=== PATIENT | female | born 1930 | race African-American/Black ===

== ENCOUNTER 2016-12-21 13:11 | Inpatient (IN) | payer MEDICARE, OTHER ==
[~2016-12-21] VITALS: Ht 165.1 cm; Wt 68.3 kg
[~2016-12-21 13:11] MED LIST: ACET325T9 PO; ALLO300T PO; AMLO2.5T2 PO; ATEN25TA PO; BISA-42 PO; CARV3.122 PO; CEFU500T46 PO; CHOL500016 PO; CYAN10005 PO; DEME300T PO; DIPH25CA58 PO; FAMO20TA5 PO; FERR-26 PO; FOLI1TAB16 PO; FURO-68 PO; FURO-69 PO; GABA-586 PO; GUAI100L12 PO; GUAI100L3 PO; GUAI118L3 PO; GUAI600T38 PO; IPRA0.2S5 NEB; IPRA3AMP IH; MAG360OR24 PO; MAGN400T3 PO; METO5TAB PO; MINE120C TP; NITR0.4T6 SL; OMEP20CA9 PO; OMEP20TA PO; ONDA4TAB10 SL; OSEL75CA PO; PANT40TA3 PO; POLY17PO5 PO; POTA10CA PO; SENN1TAB5 PO; SODI30SP NS; SPIR50TA PO; TOLV15TA PO; TRAM50TA PO
[2016-12-21] MEDS ORDERED: IV NORMAL SALINE 1000ML BAG 1,000 ML IV SCH (14:09)
--- NOTE | 2016-12-21 14:47 | PHYS DOC ---
Past Medical History Past Medical History: Anemia, Arthritis, Arrhythmia, Asthma, CHF, GERD, Kidney Infection, Renal Disease, TB, Other Additional Past Medical Histor: Lymphedema, Malignant Lymphomas, Falls, Rhabdomyolsis, Gout, Dysrhythmias Past Surgical History: Hysterectomy Additional Past Surgical Histo: Unknown Alcohol Use: None Drug Use: None Adult General Chief Complaint Chief Complaint: MULTIPLE COMPLAINTS HPI HPI Patient is a 86 year old female who presents with possible bowel obstruction. The patient came to the emergency department from her alf after patient became diaphoretic while trying to have a bowel movement. Patient is accompanied by her who helps provide history. The patient has had difficulty with bowel movements throughout the week. The patient was given MiraLAX to try to help with bowel movements. Patient has only been able to move liquid stool. Patient had x-rays done through the alf which showed small bowel distention. The patient was sent to the emergency department for further evaluation. The patient has not been able to tolerate oral intake today. Patient denies any significant pain currently. Review of Systems Review of Systems Constitutional: Denies fever or chills [] Eyes: Denies change in visual acuity, redness, or eye pain [] HENT: Denies nasal congestion or sore throat [] Respiratory: Denies cough or shortness of breath [] Cardiovascular: Denies chest pain or edema [] GI: Abdominal distention, constipation [] : Denies dysuria or hematuria [] Musculoskeletal: Denies back pain or joint pain [] Integument: Denies rash or skin lesions [] Neurologic: Denies headache, focal weakness or sensory changes [] Endocrine: Denies polyuria or polydipsia [] Current Medications Current Medications Current Medications Medications (Trade) Dose Ordered Sig/Harmeet Start Time Stop Time Status Last Admin Dose Admin Sodium Chloride (Iv Sodium Chloride 0.9% 1000ml Bag) 1,000 ml @ 100 mls/hr Q10H 12/21/16 14:09 12/22/16 00:08 Allergies Allergies Allergies Coded Allergies Type Severity Reaction Last Updated Verified Iodinated Contrast Media - Oral and Allergy Severe Anaphylaxis 02/04/16 Yes Iodine and Iodide Containing Produc Allergy Severe Anaphylaxis 02/04/16 Yes iodine Allergy Severe ANAPHYLAXIS 02/04/16 Yes Penicillins Allergy Intermediate 02/04/16 Yes I S O L A T I O N *CONTACT* Allergy Unknown 02/04/16 Yes Physical Exam Physical Exam Constitutional: Alert, afebrile, appears in no acute distress. [] HENT: Normocephalic, atraumatic, bilateral external ears normal, oropharynx moist, no oral exudates, nose normal. [] Eyes: PERRLA, EOMI, conjunctiva normal, no discharge. [] Neck: Normal range of motion, no tenderness, supple, no stridor. [] Cardiovascular:Heart rate regular rhythm, no murmur [] Lungs & Thorax: Bilateral breath sounds clear to auscultation [] Abdomen: Abdomen distended, high-pitched bowel sounds, nontender to palpation, rectal exam reveals no fecal impaction. [] Skin: Warm, dry, no erythema, no rash. [] Back: No tenderness, no CVA tenderness. [] Extremities: No tenderness, no cyanosis, no clubbing, ROM intact, no edema. [] Neurologic: Alert and oriented X 3, normal motor function, normal sensory function, no focal deficits noted. [] Current Patient Data Vital Signs Vital Signs Date Time Temp Pulse Resp B/P Pulse Ox O2 Delivery O2 Flow Rate FiO2 12/21/16 13:47 76 19 164/71 100 Room Air 12/21/16 13:36 97.7 97.7 EKG EKG Interpreted by me: Heart rate 77, sinus rhythm, left axis deviation, prolonged MO interval, no acute ST/T-wave abnormalities present [] Radiology/Procedures Radiology/Procedures [facility] [address] [place] [address] IMAGING REPORT Signed PATIENT: GUICHO RUIZ ACCOUNT: [id number] : 1930 LOCATION: ER AGE: 86 SEX: F EXAM STATUS: REG ER ORD. PHYSICIAN: DELMA KAN MD REASON: abdominal distention, suspect obstruction PROCEDURE: ABDOMEN SUPINE & UPRIGHT ABDOMEN SUPINE UPRIGHT History:abdominal distention, pain, suspect obstruction Comparison: 05/25/2015 Findings:Single upright and 2 supine views of the abdomen are submitted. No free air is identified. There is small right pleural effusion. There is fairly diffuse gas distention of the large and small bowel. There are multiple phleboliths in the pelvis. There is surgical suture of the pelvis. There is degenerative change of the bilateral hips. Impression: 1.There is fairly diffuse gas distention of large and small bowel, may be due to ileus versus distal obstruction. 2. There is a small right pleural effusion. DICTATED and SIGNED BY: AVEL APARICIO MD DATE: 12/21/16 1441 CC: RICH MELÉNDEZ MD; DELMA KAN MD ~ [] Course & Med Decision Making Course & Med Decision Making Pertinent Labs and Imaging studies reviewed. (See chart for details) The patient was found to have evidence of ileus versus obstruction on her abdominal x-rays. The patient will be admitted to the hospital for further evaluation. Patient pending CT scan and lab work at time of sign out. Patient care was signed out to Dr. Mack at 1518. Dragon Disclaimer Dragon Disclaimer This electronic medical record was generated, in whole or in part, using a voice recognition dictation system. Departure Departure Impression: Primary Impression: Small bowel obstruction Disposition: ADMITTED INPATIENT Admitting Physician: Marques Calles Condition: STABLE Referrals: RICH MELÉNDEZ MD (PCP) DELMA KAN MD Dec 21, 2016 14:47
[2016-12-21] MEDS ORDERED: ONDANSETRON PF 4 MG/2 ML VIAL. IV PRN ×2 (15:30→18:45)
[2016-12-21 15:44] LABS: BASO # 0.1 x10^3/uL (0.0-0.2); BASO % 1 % (0-3); EOS % 1 % (0-3); HEMATOCRIT 26.8 % (36.0-47.0); HEMOGLOBIN 8.9 g/dL (12.0-15.5); LYMPH # 1.6 x10^3/uL (1.0-4.8); LYMPH % 25 % (24-48); MEAN CORPUSCULAR HEMOGLOBIN 36 pg (25-35); MEAN CORPUSCULAR HGB CONC 33 g/dL (31-37); MEAN CORPUSCULAR VOLUME 108 fL (79-100); MONO % 7 % (0-9); NEUT % 66 % (31-73); PLATELET COUNT 187 x10^3/uL (140-400); RED BLOOD COUNT 2.49 x10^6/uL (3.50-5.40); RED CELL DISTRIBUTION WIDTH 19.2 % (11.5-14.5); WHITE BLOOD COUNT 6.2 x10^3/uL (4.0-11.0)
[2016-12-21 16:01] LABS: CALCIUM 9.5 mg/dL (8.5-10.1); GFR 63.5; POTASSIUM 4.9 mmol/L (3.5-5.1)
[2016-12-21 16:07] LABS: TOTAL BILIRUBIN 1.1 mg/dL (0.2-1.0); TOTAL PROTEIN 7.9 g/dL (6.4-8.2)
--- NOTE | 2016-12-21 16:24 | RAD ---
ABDOMEN PELVIS WO CONTRAST History:abdominal pain, bowel obstruction Technique: Noncontrast CT imaging was performed of the abdomen pelvis, multiplanar reconstruction images submitted. Exposure: One or more of the following individualized dose reduction techniques were utilized for this exam: 1. Automated exposure control.2. Adjustment of the mA and/or KV according to patient size.3. Use of iterative reconstruction technique. Comparison: 09/04/2015 Findings:There is no significant abnormality of the limited visualized lung bases. There is mitral annular calcification. Accurate evaluation of the abdominal visceral organs is limited without intravenous contrast. There are hepatic and splenic granulomas. There is cholelithiasis. There is probable left adrenal nodule although stable 1.2 cm maximal dimension, density measurements not diagnostic of the lipid rich adenoma although findings unchanged. There is no right adrenal nodularity. There is no hydronephrosis or renal calculus. There is diffuse prominent atherosclerotic calcification of the normal caliber abdominal aorta, also seen near the origins of renal arteries and proximal superior mesenteric artery. There is also involvement of the iliac arteries. Accurate evaluation of bowel is limited without oral contrast. Appendix is not dilated, some mild hyperdensity proximal lumen more likely due to hyperdense stool than appendicolith the. There is scattered gas in the large and small bowel, some nonspecific air-fluid levels in both the colon and small bowel. There is also mild distention of the stomach. Small bowel loops are overall not considered significantly dilated. No discrete obstructing mass is identified of the colon on this noncontrast exam. No free air or significant intraluminal fluid collection/free fluid is identified. There is degenerative change of the left hip, also lumbar degenerative disc disease greatest at L5-S1. There is partial interbody fusion L4-5 at which there is grade 1 anterior spondylolisthesis. There is superior height loss of the L1 vertebral body although unchanged. There is multilevel lumbar facet degenerative change. There is suspected [id number] spinal stenosis L4-5. Impression: 1.There is diffuse gas in the large and small bowel with air-fluid levels, overall pattern more suggestive of ileus. No free fluid or free air is identified. Normal caliber appendix is visualized. 2. There is cholelithiasis. 3. Left adrenal nodule is stable.
--- NOTE | 2016-12-21 17:35 | ACF ---
Admission Forms Criteria INTESTINAL OBSTRUCTION; ILEUS Clinical Indications for Admission to Inpatient Care ( Place 'X' for any and all applicable criteria): Admission is indicated for ANY ONE of the following(1)(2)(3)(4): [X]I. Complete ileus Extended stay beyond goal length of stay may be needed for(1)(2): [ ]a) Persistent colonic pseudo-obstruction [ ]b) Prolonged ileus [ ]c) Other surgical intervention [ ]d) Significant comorbidities (eg, renal failure, persistent electrolyte imbalance or hypovolemia) The original [employer] content created by [employer] has been revised. The portions of the content which have been revised are identified through the use of italic text or in bold, and [facility] [employer] has neither reviewed nor approved the modified material. All other unmodified content is copyright [employer]. Please see references footnoted in the original [employer] edition 2016 Admission Criteria Met?: Yes MARGE SEN Dec 21, 2016 17:35
[2016-12-21 17:40] VITALS: BP 141/57
--- NOTE | 2016-12-21 18:13 | PDOC1 ---
History and Physical Past Medical History Cardiovascular: CHF, HTN, Other Pulmonary: Asthma CENTRAL NERVOUS SYSTEM: Dementia, Other GI: Constipation Heme/Onc: Anemia NOS Psych: Anxiety Rheumatologic: Gout Past Surgical History Past Surgical History: Hysterectomy Family History Family History: No Significant, Hypertension, Other Social History Smoke: No ALCOHOL: none Drugs: None Current Problem List Problem List Problems Medical Problems: (1) Small bowel obstruction Status: Acute Current Medications Current Medications Current Medications Medications (Trade) Dose Ordered Sig/Harmeet Start Time Stop Time Status Last Admin Dose Admin Ondansetron HCl 4 mg 4 mg PRN Q8HRS PRN 12/21/16 15:30 12/22/16 15:29 Sodium Chloride (Iv Sodium Chloride 0.9% 1000ml Bag) 1,000 ml @ 100 mls/hr Q10H 12/21/16 15:20 12/22/16 15:19 Allergies Allergies Allergies Coded Allergies Type Severity Reaction Last Updated Verified Iodinated Contrast Media - Oral and Allergy Severe Anaphylaxis 02/04/16 Yes Iodine and Iodide Containing Produc Allergy Severe Anaphylaxis 02/04/16 Yes iodine Allergy Severe ANAPHYLAXIS 02/04/16 Yes Penicillins Allergy Intermediate 02/04/16 Yes I S O L A T I O N *CONTACT* Allergy Unknown 02/04/16 Yes ROS Review of System CONSTITUTIONAL: No fever or chills EYES: No recent changes SKIN: No rash or itching CARDIOVASCULAR: No chest pain, syncope, palpitations, or edema RESPIRATORY: No SOB or cough GASTROINTESTINAL: ABDOMINAL DISTENTION NEUROLOGICAL: No headaches or weakness ENDOCRINE: No cold or heat intolerance GENITOURINARY: No urgency or frequency of urination MUSCULOSKELETAL: No back pain or joint pain LYMPHATICS: No enlarged lymph nodes PSYCHIATRIC: No anxiety or depression Physical Exam Physical Exam GEN.: No apparent distress. Alert and oriented. HEENT: Head is normocephalic, atraumatic NECK: Supple. No jvd LUNGS: Clear to auscultation. normal airflow HEART: RRR, S1, S2 present. Peripheral pulses intact ABDOMEN: Soft distended, BS present EXTREMITIES: Without any cyanosis. NEUROLOGIC: Normal speech, normal tone PSYCHIATRIC: Normal affect, normal mood. SKIN: No visible ulcerations Vitals Vitals Vital Signs Date Time Temp Pulse Resp B/P Pulse Ox O2 Delivery O2 Flow Rate FiO2 12/21/16 13:47 76 19 164/71 100 Room Air 12/21/16 13:36 97.7 97.7 Labs Labs Laboratory Tests Test 12/21/16 15:00 White Blood Count 6.2x10^3/uL (4.0-11.0) Red Blood Count 2.49x10^6/uL (3.50-5.40) Hemoglobin 8.9g/dL (12.0-15.5) Hematocrit 26.8% (36.0-47.0) Mean Corpuscular Volume 108fL (79-100) Mean Corpuscular Hemoglobin 36pg (25-35) Mean Corpuscular Hemoglobin Concent 33g/dL (31-37) Red Cell Distribution Width 19.2% (11.5-14.5) Platelet Count 187x10^3/uL (140-400) Neutrophils (%) (Auto) 66% (31-73) Lymphocytes (%) (Auto) 25% (24-48) Monocytes (%) (Auto) 7% (0-9) Eosinophils (%) (Auto) 1% (0-3) Basophils (%) (Auto) 1% (0-3) Neutrophils # (Auto) 4.1x10^3uL (1.8-7.7) Lymphocytes # (Auto) 1.6x10^3/uL (1.0-4.8) Monocytes # (Auto) 0.5x10^3/uL (0.0-1.1) Eosinophils # (Auto) 0.0x10^3/uL (0.0-0.7) Basophils # (Auto) 0.1x10^3/uL (0.0-0.2) Sodium Level 135mmol/L (136-145) Potassium Level 4.9mmol/L (3.5-5.1) Chloride Level 101mmol/L (98-107) Carbon Dioxide Level 27mmol/L (21-32) Anion Gap 7 (6-14) Blood Urea Nitrogen 16mg/dL (7-20) Creatinine 1.0mg/dL (0.6-1.0) Estimated GFR (Cockcroft-Gault) 63.5 BUN/Creatinine Ratio 16 (6-20) Glucose Level 114mg/dL (70-99) Calcium Level 9.5mg/dL (8.5-10.1) Total Bilirubin 1.1mg/dL (0.2-1.0) Aspartate Amino Transf (AST/SGOT) 13U/L (15-37) Alanine Aminotransferase (ALT/SGPT) 14U/L (14-59) Alkaline Phosphatase 44U/L (46-116) Total Protein 7.9g/dL (6.4-8.2) Albumin 4.0g/dL (3.4-5.0) Albumin/Globulin Ratio 1.0 (1.0-1.7) Lipase 96U/L (73-393) Laboratory Tests Test 12/21/16 15:00 White Blood Count 6.2x10^3/uL (4.0-11.0) Red Blood Count 2.49x10^6/uL (3.50-5.40) Hemoglobin 8.9g/dL (12.0-15.5) Hematocrit 26.8% (36.0-47.0) Mean Corpuscular Volume 108fL (79-100) Mean Corpuscular Hemoglobin 36pg (25-35) Mean Corpuscular Hemoglobin Concent 33g/dL (31-37) Red Cell Distribution Width 19.2% (11.5-14.5) Platelet Count 187x10^3/uL (140-400) Neutrophils (%) (Auto) 66% (31-73) Lymphocytes (%) (Auto) 25% (24-48) Monocytes (%) (Auto) 7% (0-9) Eosinophils (%) (Auto) 1% (0-3) Basophils (%) (Auto) 1% (0-3) Neutrophils # (Auto) 4.1x10^3uL (1.8-7.7) Lymphocytes # (Auto) 1.6x10^3/uL (1.0-4.8) Monocytes # (Auto) 0.5x10^3/uL (0.0-1.1) Eosinophils # (Auto) 0.0x10^3/uL (0.0-0.7) Basophils # (Auto) 0.1x10^3/uL (0.0-0.2) Sodium Level 135mmol/L (136-145) Potassium Level 4.9mmol/L (3.5-5.1) Chloride Level 101mmol/L (98-107) Carbon Dioxide Level 27mmol/L (21-32) Anion Gap 7 (6-14) Blood Urea Nitrogen 16mg/dL (7-20) Creatinine 1.0mg/dL (0.6-1.0) Estimated GFR (Cockcroft-Gault) 63.5 BUN/Creatinine Ratio 16 (6-20) Glucose Level 114mg/dL (70-99) Calcium Level 9.5mg/dL (8.5-10.1) Total Bilirubin 1.1mg/dL (0.2-1.0) Aspartate Amino Transf (AST/SGOT) 13U/L (15-37) Alanine Aminotransferase (ALT/SGPT) 14U/L (14-59) Alkaline Phosphatase 44U/L (46-116) Total Protein 7.9g/dL (6.4-8.2) Albumin 4.0g/dL (3.4-5.0) Albumin/Globulin Ratio 1.0 (1.0-1.7) Lipase 96U/L (73-393) VTE Prophylaxis Ordered VTE Prophylaxis Devices: Contraindicated VTE Pharmacological Prophylaxi: Contraindicated MALCOLM PELAYO MD Dec 21, 2016 18:13
[2016-12-21] MEDS ORDERED: IPRA3AMP NEB (18:15)
[2016-12-21] MEDS ORDERED: POTA20TA84 PO (18:15)
[2016-12-21] MEDS ORDERED: METO50TA10 PO (18:15)
[2016-12-21] MEDS ORDERED: FURO20TA3 PO (18:15)
[2016-12-21] MEDS ORDERED: BISA10SU2 RC (18:15)
[2016-12-21] MEDS ORDERED: ASPI81TA2 PO (18:15)
[2016-12-21] MEDS ORDERED: DICL100G24 TP (18:15)
[2016-12-21] MEDS ORDERED: LACT20SO PO (18:15)
[2016-12-21] MEDS ORDERED: METO5TAB55 PO (18:15)
[2016-12-21] MEDS ORDERED: METOPROLOL TARTRATE 5 MG/5 ML VIAL. IVP PRN (18:39)
[2016-12-21] MEDS ORDERED: ALBUTEROL SULFATE 2.5 MG/3 ML NEBU. NEB PRN (18:45)
[2016-12-21] MEDS ORDERED: hydrALAZINE 20 MG/ML VIAL. IVP PRN (18:45)
[2016-12-21] MEDS: ENOXAPARIN 30 MG/0.3 ML DISP.SYRIN. SQ SCH (19:00)
[2016-12-21] MEDS ORDERED: LORAZEPAM INTENSOL 2 MG/ML ORAL.CONC. SL ONE (19:30)
[2016-12-21] MEDS: IV NORMAL SALINE 1000ML BAG 1,000 ML IV SCH (22:48)
[2016-12-21 23:35] VITALS: BP 144/75
--- NOTE | 2016-12-21 23:48 | HP ---
ADMIT DATE: 12/21/2016 CHIEF COMPLAINT: General weakness, not feeling good, abdominal distention. HISTORY OF PRESENT ILLNESS: An 86-year-old female patient presented to the ER with complaints of diaphoresis while trying to have bowel movement and patient was treated for constipation nearly for 1 week and she was treated with MiraLax, however she is having bowel movement, but difficulty to have bowel movements. This morning she noted to have some abdominal distention, transferred to hospital for further care. Patient as such denies any symptoms. She thinks she is generalized weak and abdomen is distended. Other than that she denies any nausea or vomiting or abdominal pain. Initial x-ray showed distended bowels and suspected for ileus. PAST MEDICAL HISTORY: Anemia, GERD, kidney infection, ____, lymphedema, malignant lymphomas, , rhabdomyolsis, gout and dysrhythmias. PERSONAL HISTORY: No smoking, no alcohol, no drug abuse. REVIEW OF SYSTEMS, PHYSICAL EXAMINATION: Please see my electronic H and P. LABORATORY FINDINGS: Hemoglobin is 8.9, MCV is 108, MCHC 33, platelets 187. Chemistry: Sodium 135, potassium 4.9, chloride is 27, gap is 7, BUN 16, creatinine 1.0. Glucose is 114, total bilirubin is 1.1. IMAGING STUDIES: CT of the abdomen shows she was gassy in the large and small bowel with air fluid level, so overall pattern suggestive of ileus. No free air is seen. There is cholelithiasis, left adrenal nodule is stable. Abdominal x-ray, fairly diffuse gaseous distention of large and small bowels, obstruction. ASSESSMENT: 1. Ileus present on admission with distention of small and large bowels. 2. Anemia stable. Macrocytic. 3. History of malignant lymphoma. 4. Physically weak, dehydration. 5. History of asthma, stable. PLAN: 1. The patient has been admitted for Gastroenterology evaluation. Keep her n.p.o. patient has a difficult IV access. We will start PICC line. 2. Supportive care. IV normal saline at 70 mL/hour. 3. Hold oral medications. rectal Tylenol for pain and fever. 4. IV Zofran p.r.n. 5. If patient continued not to have any nutrition, start on PPN in a.m. 6. High risk for DVT. 7. Physical therapy and occupational therapy. 8. Prognosis guarded. MALCOLM PELAYO MD DR: MINDY/ceasar JOB#: [id number] / [id number] ROSARIO
[2016-12-22] MEDS ORDERED: METOPROLOL TARTRATE 5 MG/5 ML VIAL. IVP SCH
[2016-12-22] MEDS: IV NORMAL SALINE 1000ML BAG 1,000 ML IV SCH ×2 (01:20→10:53)
[2016-12-22] MEDS: ENOXAPARIN 30 MG/0.3 ML DISP.SYRIN. SQ SCH ×2 (03:26→18:33)
[2016-12-22 03:40] VITALS: BP 137/64
--- NOTE | 2016-12-22 06:47 | EKG ---
[facility] [address] [place] [address] Test Date: 2016-12-21 Test Time: 13:21:30 Pat Name: GUICHO RUIZ Department: Room: Gender: F Choir Member: : 1930 Requested By: DELMA KAN Order Number: [id number] Reading MD: Measurements Intervals [place] Rate: 77 P: -24 PA: 258 QRS: -76 QRSD: 106 T: 59 QT: 432 QTc: 491 Interpretive Statements SINUS RHYTHM PROLONGED PA INTERVAL ABNORMAL LEFT AXIS DEVIATION R-S TRANSITION ZONE IN V LEADS DISPLACED TO THE LEFT S1,S2,S3 PATTERN LEFT ANTERIOR FASCICULAR BLOCK CONSIDER RIGHT VENTRICULAR HYPERTROPHY PROLONGED QT ABNORMAL ECG RI6.01 No previous ECG available for comparison
[2016-12-22 07:00] VITALS: BP 151/71
--- NOTE | 2016-12-22 08:34 | PDOC2 ---
RORY CAMPA MANAGER QUALITY COMPLIANCE 12/22/16 0834: CONSULT Date of Consult Date of Consult DATE: 12/22/16 TIME: 08:23 Reason for Consult Reason for Consult: sbo vs ileus Referring Physician Referring Physician: ER Identification/Chief Complaint Chief Complaint distention Source Source: Chart review, Patient History of Present Illness Reason for Visit: Admitted with constipation for 1 week. Has only been having loose stool, nothing solid. Denies abdominal pain. Reports she is having flatus. Poor po intake. She has a history of constipation and ileus from record review. Most of her history was obtained from records. [facility] Past Medical History Cardiovascular: CHF, HTN, Other Pulmonary: Asthma CENTRAL NERVOUS SYSTEM: Dementia, Other GI: Constipation Heme/Onc: Anemia NOS Psych: Anxiety Musculoskeletal: Osteoarthritis Rheumatologic: Gout Past Surgical History Past Surgical History: Hysterectomy Family History Family History: No Significant, Hypertension, Other Social History No ALCOHOL: none Drugs: None Lives: Retirement Current Problem List Problem List Problems Medical Problems: (1) Small bowel obstruction Status: Acute Current Medications Current Medications Current Medications Sodium Chloride (Iv Sodium Chloride 0.9% 1000ml Bag) 1,000 ml @ 100 mls/hr Q10H IV ; Start 12/21/16 at 14:09; Stop 12/21/16 at 20:00; Status DC Ondansetron HCl 4 mg 4 mg PRN Q8HRS PRN IV NAUSEA/VOMITING; Start 12/21/16 at 15:30; Stop 12/22/16 at 15:29 Sodium Chloride (Iv Sodium Chloride 0.9% 1000ml Bag) 1,000 ml @ 100 mls/hr Q10H IV Last administered on 12/21/16t 22:48; Start 12/21/16 at 15:20; Stop at 15:19 Acetaminophen (Tylenol) 325 mg PRN Q6HRS PRN PO MILD PAIN / TEMP; Start at 18:45 Hydralazine HCl (Apresoline) 10 mg PRN Q4HRS PRN IVP ELEVATED BP, SEE COMMENTS ; Start 12/21/16 at 18:45 Ondansetron HCl (Zofran) 4 mg PRN Q8HRS PRN IV NAUSEA/VOMITING; Start 12/21/16 at 18:45 Albuterol Sulfate (Ventolin Neb Soln) 2.5 mg PRN Q4HRS PRN NEB SHORTNESS OF BREATH; Start 12/21/16 at 18:45 Enoxaparin Sodium (Lovenox 30mg Syringe) 30 mg Q24H SQ Last administered on 03:26; Start 12/21/16 at 19:00 Metoprolol Tartrate (Lopressor) 2.5 mg Q6HRS IVP ; Start 12/22/16 at 00:00; Stop 12/22/16 at 00:00; Status DC Metoprolol Tartrate (Lopressor) 2.5 mg PRN Q6HRS PRN IVP BLOODPRESSURE CONTROL ; Start 12/21/16 at 18:39 Lorazepam (Ativan Intensol) 1 mg 1X ONCE SL Last administered on 12/21/16 19: 59; Start 12/21/16 at 19:30; Stop 12/21/16 at 19:32; Status DC Active Scripts Active Atenolol 25 Mg Tablet 25 Mg PO DAILY 30 Days Folic Acid 1 Mg Tablet 1 Tab PO DAILY Reported Diclofenac Sodium 100 Gm Gel..gram. 100 Gm TP QID Metoprolol Succinate 50 Mg Tab.er.24h 25 Mg PO DAILY Reglan (Metoclopramide Hcl) 5 Mg Tablet 5 Mg PO TID K-Tab ER (Potassium Chloride) 20 Meq Tablet.er 60 Meq PO DAILY Furosemide 20 Mg Tablet 1 Tab PO DAILY Lactulose 20 Gm/30 Ml Solution 20 Gm PO PRN DAILY PRN Duoneb 0.5-3(2.5) Mg/3 Ml (Albuterol/Ipratropium) 3 Ml Ampul.neb 3 Ml NEB PRN Q4HRS PRN Bisacodyl 10 Mg Supp.rect 10 Mg RC PRN DAILY PRN Aspirin 81 Mg Tab.chew 1 Tab PO DAILY Zofran Odt (Ondansetron) 4 Mg Tab.rapdis 1 Tab SL PRN Q6HRS PRN NITROGLYCERIN SubLingual (Nitroglycerin) 0.4 Mg Tab.subl 1 Tab SL PRN Q5MIN PRN Guaifenesin 100 Mg/5 Ml Liquid 200 Mg PO PRN Q6HRS PRN Magnesium Oxide 400 Mg Tablet 400 Mg PO QID Protonix (Pantoprazole Sodium) 40 Mg Tablet.dr 1 Tab PO DAILY Demeclocycline Hcl 300 Mg Tablet 300 Mg PO TID Ferrous Sulfate 325 Mg Tablet 325 Mg PO BID Alum-Mag Hydroxide-Simeth Liq (Mag Hydrox/Al Hydrox/Simeth) 360 Ml Oral.susp 30 Ml PO PRN Q4HRS PRN Tylenol (Acetaminophen) 325 Mg Tablet 650 Mg PO PRN Q6HRS PRN Dulcolax (Bisacodyl) 5 Mg Tablet.dr 5 Mg PO PRN DAILY PRN Gabapentin 300 Mg Capsule 300 Mg PO HS Saline Nasal Fieldon (Sodium Chloride) 30 Ml Fieldon 1-2 Fieldon NS BID Miralax (Polyethylene Glycol 3350) 17 Gm Powd.pack 17 Gm PO DAILY Senna-S Tablet (Sennosides/Docusate Sodium) 1 Each Tablet 2 Each PO DAILY Allergies Allergies: Coded Allergies: Iodinated Contrast Media - Oral and (Verified Allergy, Severe, Anaphylaxis , 02/04/16) Iodine and Iodide Containing Produc (Verified Allergy, Severe, Anaphylaxis , 02/04/16) iodine (Verified Allergy, Severe, ANAPHYLAXIS, 02/04/16) Penicillins (Verified Allergy, Intermediate, 02/04/16) I S O L A T I O N *CONTACT* (Verified Allergy, Unknown, 02/04/16) mrsa + ROS General: No: Chills, Other (fevers) PSYCHOLOGICAL ROS: No: Anxiety, Depression Eyes: No Blurry vision, No Double vision HEENT: No: Heacaches, Sore Throat Hematological and Lymphatic: No: Bleeding Problems, Blood Clots Respiratory: No: Cough, Shortness of breath Cardiovascular: No Chest Pain, No Palpitations Gastrointestinal: Yes Other (see hpi) Genitourinary: No Dysuria, No Hematuria Musculoskeletal: Yes Muscular Weakness Neurological: No Confusion, No Numbness/Tingling Skin: No Pruritus, No Rash Physical Exam General: Alert, Cooperative, No acute distress HEENT: Atraumatic, Mucous membr. moist/pink Lungs: Clear to auscultation, Normal air movement Heart: Regular rate, Normal S1, Normal S2 Abdomen: Soft, Other (distended, nontender on exam) Extremities: No clubbing, No cyanosis Skin: No rashes, No breakdown Neuro: Normal speech, Sensation intact Psych/Mental Status: Mental status NL, Mood NL MUSCULOSKELETAL: No deformity, No swelling Vitals VITALS Vital Signs Date Time Temp Pulse Resp B/P Pulse Ox O2 Delivery O2 Flow Rate FiO2 12/22/16 07:55 Room Air 12/22/16 03:40 97.5 73 18 137/64 98 97.5 Labs Labs Laboratory Tests Test 12/21/16 15:00 12/21/16 21:49 White Blood Count 6.2x10^3/uL (4.0-11.0) Red Blood Count 2.49x10^6/uL (3.50-5.40) Hemoglobin 8.9g/dL (12.0-15.5) Hematocrit 26.8% (36.0-47.0) Mean Corpuscular Volume 108fL (79-100) Mean Corpuscular Hemoglobin 36pg (25-35) Mean Corpuscular Hemoglobin Concent 33g/dL (31-37) Red Cell Distribution Width 19.2% (11.5-14.5) Platelet Count 187x10^3/uL (140-400) Neutrophils (%) (Auto) 66% (31-73) Lymphocytes (%) (Auto) 25% (24-48) Monocytes (%) (Auto) 7% (0-9) Eosinophils (%) (Auto) 1% (0-3) Basophils (%) (Auto) 1% (0-3) Neutrophils # (Auto) 4.1x10^3uL (1.8-7.7) Lymphocytes # (Auto) 1.6x10^3/uL (1.0-4.8) Monocytes # (Auto) 0.5x10^3/uL (0.0-1.1) Eosinophils # (Auto) 0.0x10^3/uL (0.0-0.7) Basophils # (Auto) 0.1x10^3/uL (0.0-0.2) Sodium Level 135mmol/L (136-145) Potassium Level 4.9mmol/L (3.5-5.1) Chloride Level 101mmol/L (98-107) Carbon Dioxide Level 27mmol/L (21-32) Anion Gap 7 (6-14) Blood Urea Nitrogen 16mg/dL (7-20) Creatinine 1.0mg/dL (0.6-1.0) Estimated GFR (Cockcroft-Gault) 63.5 BUN/Creatinine Ratio 16 (6-20) Glucose Level 114mg/dL (70-99) Calcium Level 9.5mg/dL (8.5-10.1) Total Bilirubin 1.1mg/dL (0.2-1.0) Aspartate Amino Transf (AST/SGOT) 13U/L (15-37) Alanine Aminotransferase (ALT/SGPT) 14U/L (14-59) Alkaline Phosphatase 44U/L (46-116) Total Protein 7.9g/dL (6.4-8.2) Albumin 4.0g/dL (3.4-5.0) Albumin/Globulin Ratio 1.0 (1.0-1.7) Lipase 96U/L (73-393) Glucose (Fingerstick) 103mg/dL (70-99) Laboratory Tests Test 12/21/16 15:00 12/21/16 21:49 White Blood Count 6.2x10^3/uL (4.0-11.0) Red Blood Count 2.49x10^6/uL (3.50-5.40) Hemoglobin 8.9g/dL (12.0-15.5) Hematocrit 26.8% (36.0-47.0) Mean Corpuscular Volume 108fL (79-100) Mean Corpuscular Hemoglobin 36pg (25-35) Mean Corpuscular Hemoglobin Concent 33g/dL (31-37) Red Cell Distribution Width 19.2% (11.5-14.5) Platelet Count 187x10^3/uL (140-400) Neutrophils (%) (Auto) 66% (31-73) Lymphocytes (%) (Auto) 25% (24-48) Monocytes (%) (Auto) 7% (0-9) Eosinophils (%) (Auto) 1% (0-3) Basophils (%) (Auto) 1% (0-3) Neutrophils # (Auto) 4.1x10^3uL (1.8-7.7) Lymphocytes # (Auto) 1.6x10^3/uL (1.0-4.8) Monocytes # (Auto) 0.5x10^3/uL (0.0-1.1) Eosinophils # (Auto) 0.0x10^3/uL (0.0-0.7) Basophils # (Auto) 0.1x10^3/uL (0.0-0.2) Sodium Level 135mmol/L (136-145) Potassium Level 4.9mmol/L (3.5-5.1) Chloride Level 101mmol/L (98-107) Carbon Dioxide Level 27mmol/L (21-32) Anion Gap 7 (6-14) Blood Urea Nitrogen 16mg/dL (7-20) Creatinine 1.0mg/dL (0.6-1.0) Estimated GFR (Cockcroft-Gault) 63.5 BUN/Creatinine Ratio 16 (6-20) Glucose Level 114mg/dL (70-99) Calcium Level 9.5mg/dL (8.5-10.1) Total Bilirubin 1.1mg/dL (0.2-1.0) Aspartate Amino Transf (AST/SGOT) 13U/L (15-37) Alanine Aminotransferase (ALT/SGPT) 14U/L (14-59) Alkaline Phosphatase 44U/L (46-116) Total Protein 7.9g/dL (6.4-8.2) Albumin 4.0g/dL (3.4-5.0) Albumin/Globulin Ratio 1.0 (1.0-1.7) Lipase 96U/L (73-393) Glucose (Fingerstick) 103mg/dL (70-99) Assessment/Plan Assessment/Plan ileus vs Sbo, c/w ileus multiple comorbidities including CHF, dementia, lymphoma chronic constipation bowel rest, repeat abdominal films, TSH will review with ARISTIDES Castro MD 12/22/16 0958: CONSULT Allergies Allergies: Coded Allergies: Iodinated Contrast Media - Oral and (Verified Allergy, Severe, Anaphylaxis , 02/04/16) Iodine and Iodide Containing Produc (Verified Allergy, Severe, Anaphylaxis , 02/04/16) iodine (Verified Allergy, Severe, ANAPHYLAXIS, 02/04/16) Penicillins (Verified Allergy, Intermediate, 02/04/16) I S O L A T I O N *CONTACT* (Verified Allergy, Unknown, 02/04/16) mrsa + Assessment/Plan Assessment/Plan Patient seen and examined by me. Denies pain, abd soft, NT mildly distended. CT shows dilated loops of small bowel with large amount of stool in the rectum and sigmoid colon. Continue bowel rest, enema per rectum. Agree with Rebecca's assessment and plan. RORY CAMPA APRN Dec 22, 2016 08:34 ARISTIDES CRUMP MD Dec 22, 2016 09:58
[2016-12-22 09:26] LABS: BASO % 1 % (0-3); EOS % 1 % (0-3); HEMATOCRIT 23.6 % (36.0-47.0); HEMOGLOBIN 8.1 g/dL (12.0-15.5); LYMPH # 2.4 x10^3/uL (1.0-4.8); LYMPH % 45 % (24-48); MEAN CORPUSCULAR HEMOGLOBIN 36 pg (25-35); MEAN CORPUSCULAR HGB CONC 34 g/dL (31-37); MEAN CORPUSCULAR VOLUME 105 fL (79-100); MONO % 11 % (0-9); NEUT % 41 % (31-73); PLATELET COUNT 155 x10^3/uL (140-400); RED BLOOD COUNT 2.24 x10^6/uL (3.50-5.40); RED CELL DISTRIBUTION WIDTH 18.8 % (11.5-14.5); WHITE BLOOD COUNT 5.2 x10^3/uL (4.0-11.0)
[2016-12-22 09:29] LABS: CALCIUM 8.7 mg/dL (8.5-10.1); CREATININE 0.7 mg/dL (0.6-1.0); GFR 95.8; POTASSIUM 4.3 mmol/L (3.5-5.1)
--- NOTE | 2016-12-22 09:40 | PDOC ---
PROGRESS NOTES Chief Complaint Chief Complaint impaction vs ileus ASSESSMENT AND PLAN: 1. Impaction vsIleus: NPO. enemas. 2. Anemia stable. Macrocytic. B12/folate deficiency vs MDS. obtain labs 3. Asthma: stable. nebs PRN 4. Dehydration: resolved 5. Gen weakness: OT/PT 6. Prophylaxis: lovenox Vitals Vitals Vital Signs Date Time Temp Pulse Resp B/P Pulse Ox O2 Delivery O2 Flow Rate FiO2 12/22/16 07:55 Room Air 12/22/16 07:00 97.4 81 16 151/71 95 97.4 Physical Exam General: Alert, Cooperative, No acute distress Heart: Regular rate, Normal S1, Normal S2 Lungs: Clear Abdomen: Normal bowel sounds, Soft, No tenderness, Other (distended) Extremities: No clubbing, No cyanosis Skin: No rashes, No breakdown Labs LABS Laboratory Tests Test 12/21/16 15:00 12/21/16 21:49 12/22/16 08:14 12/22/16 09:10 White Blood Count 6.2x10^3/uL (4.0-11.0) Red Blood Count 2.49x10^6/uL (3.50-5.40) Hemoglobin 8.9g/dL (12.0-15.5) Hematocrit 26.8% (36.0-47.0) Mean Corpuscular Volume 108fL (79-100) Mean Corpuscular Hemoglobin 36pg (25-35) Mean Corpuscular Hemoglobin Concent 33g/dL (31-37) Red Cell Distribution Width 19.2% (11.5-14.5) Platelet Count 187x10^3/uL (140-400) Neutrophils (%) (Auto) 66% (31-73) Lymphocytes (%) (Auto) 25% (24-48) Monocytes (%) (Auto) 7% (0-9) Eosinophils (%) (Auto) 1% (0-3) Basophils (%) (Auto) 1% (0-3) Neutrophils # (Auto) 4.1x10^3uL (1.8-7.7) Lymphocytes # (Auto) 1.6x10^3/uL (1.0-4.8) Monocytes # (Auto) 0.5x10^3/uL (0.0-1.1) Eosinophils # (Auto) 0.0x10^3/uL (0.0-0.7) Basophils # (Auto) 0.1x10^3/uL (0.0-0.2) Sodium Level 135mmol/L (136-145) 139mmol/L (136-145) Potassium Level 4.9mmol/L (3.5-5.1) 4.3mmol/L (3.5-5.1) Chloride Level 101mmol/L (98-107) 103mmol/L (98-107) Carbon Dioxide Level 27mmol/L (21-32) 26mmol/L (21-32) Anion Gap 7 (6-14) 10 (6-14) Blood Urea Nitrogen 16mg/dL (7-20) 12mg/dL (7-20) Creatinine 1.0mg/dL (0.6-1.0) 0.7mg/dL (0.6-1.0) Estimated GFR (Cockcroft-Gault) 63.5 95.8 BUN/Creatinine Ratio 16 (6-20) Glucose Level 114mg/dL (70-99) 84mg/dL (70-99) Calcium Level 9.5mg/dL (8.5-10.1) 8.7mg/dL (8.5-10.1) Total Bilirubin 1.1mg/dL (0.2-1.0) Aspartate Amino Transf (AST/SGOT) 13U/L (15-37) Alanine Aminotransferase (ALT/SGPT) 14U/L (14-59) Alkaline Phosphatase 44U/L (46-116) Total Protein 7.9g/dL (6.4-8.2) Albumin 4.0g/dL (3.4-5.0) Albumin/Globulin Ratio 1.0 (1.0-1.7) Lipase 96U/L (73-393) Glucose (Fingerstick) 103mg/dL (70-99) 75mg/dL (70-99) Review of Systems Review of Systems feels ok, no abd pain Assessment and Plan Assessmemt and Plan Problems: ANTOINETTE PATTERSON MD Dec 22, 2016 09:40
[2016-12-22 11:00] VITALS: BP 134/62
--- NOTE | 2016-12-22 12:13 | RAD ---
Portable acute abdomen series with chest, 3 views, 12/22/2016: History: Abdominal pain, small bowel obstruction versus ileus Comparison is made to yesterday's study. A moderate amount of gas is present in large and small bowel with no improvement since yesterday study. No free air seen in the abdomen. Surgical wires overlie the pelvis. Extensive aortoiliac calcific plaquing is present. The heart is mildly enlarged. There is calcific plaquing of aorta. Granulomatous calcifications are present in the left chest. No acute infiltrate is seen. There is no evidence of pleural fluid. IMPRESSION: Ongoing moderate gaseous distention of large and small bowel loops most compatible with a generalized ileus.
[2016-12-22 15:00] VITALS: BP 139/62
[2016-12-22 19:00] VITALS: BP 135/67
[2016-12-22] MEDS ORDERED: DEXTROSE 50% 25 GM / 50ML DISP.SYRIN. IV PRN (22:00)
[2016-12-22 23:00] VITALS: BP 149/61
[2016-12-23 03:00] VITALS: BP 151/81
[2016-12-23 05:58] LABS: ALBUMIN 3.3 g/dL (3.4-5.0); ALBUMIN/GLOBULIN RATIO 1.1 (1.0-1.7); BASO % 1 % (0-3); CALCIUM 8.9 mg/dL (8.5-10.1); CREATININE 0.7 mg/dL (0.6-1.0); EOS % 1 % (0-3); GFR 95.8; HEMATOCRIT 21.4 % (36.0-47.0); HEMOGLOBIN 7.4 g/dL (12.0-15.5); LYMPH # 2.1 x10^3/uL (1.0-4.8); LYMPH % 42 % (24-48); MAGNESIUM 1.9 mg/dL (1.8-2.4); MEAN CORPUSCULAR HEMOGLOBIN 36 pg (25-35); MEAN CORPUSCULAR HGB CONC 35 g/dL (31-37); MEAN CORPUSCULAR VOLUME 104 fL (79-100); MONO % 9 % (0-9); NEUT % 47 % (31-73); PLATELET COUNT 139 x10^3/uL (140-400); POTASSIUM 4.1 mmol/L (3.5-5.1); RED BLOOD COUNT 2.05 x10^6/uL (3.50-5.40); TOTAL BILIRUBIN 1.2 mg/dL (0.2-1.0); TOTAL PROTEIN 6.4 g/dL (6.4-8.2); WHITE BLOOD COUNT 4.9 x10^3/uL (4.0-11.0)
[2016-12-23 07:00] VITALS: BP 155/87
--- NOTE | 2016-12-23 10:34 | PDOC ---
RORY CAMPA AVIATION PROJECT MANAGER 12/23/16 1033: SURGICAL PROGRESS NOTE Subjective denies pain had liquid stool last night, no flatus today denies n/v Vital Signs Vital Signs Date Time Temp Pulse Resp B/P Pulse Ox O2 Delivery O2 Flow Rate FiO2 12/23/16 07:00 98.1 100 20 155/87 100 Room Air 98.1 I&O Intake and Output 12/23/16 07:00 Intake Total 1958 ml Balance 1958 ml Intake Oral 0 ml IV Total 1958 ml # Voids 6 # Bowel Movements 1 General: Cooperative, No acute distress Abdomen: Soft, Other (distended, nttp) Labs Laboratory Tests Test 12/21/16 15:00 12/21/16 21:40 12/21/16 21:49 12/22/16 08:14 White Blood Count 6.2x10^3/uL (4.0-11.0) Red Blood Count 2.49x10^6/uL (3.50-5.40) Hemoglobin 8.9g/dL (12.0-15.5) Hematocrit 26.8% (36.0-47.0) Mean Corpuscular Volume 108fL (79-100) Mean Corpuscular Hemoglobin 36pg (25-35) Mean Corpuscular Hemoglobin Concent 33g/dL (31-37) Red Cell Distribution Width 19.2% (11.5-14.5) Platelet Count 187x10^3/uL (140-400) Neutrophils (%) (Auto) 66% (31-73) Lymphocytes (%) (Auto) 25% (24-48) Monocytes (%) (Auto) 7% (0-9) Eosinophils (%) (Auto) 1% (0-3) Basophils (%) (Auto) 1% (0-3) Neutrophils # (Auto) 4.1x10^3uL (1.8-7.7) Lymphocytes # (Auto) 1.6x10^3/uL (1.0-4.8) Monocytes # (Auto) 0.5x10^3/uL (0.0-1.1) Eosinophils # (Auto) 0.0x10^3/uL (0.0-0.7) Basophils # (Auto) 0.1x10^3/uL (0.0-0.2) Sodium Level 135mmol/L (136-145) Potassium Level 4.9mmol/L (3.5-5.1) Chloride Level 101mmol/L (98-107) Carbon Dioxide Level 27mmol/L (21-32) Anion Gap 7 (6-14) Blood Urea Nitrogen 16mg/dL (7-20) Creatinine 1.0mg/dL (0.6-1.0) Estimated GFR (Cockcroft-Gault) 63.5 BUN/Creatinine Ratio 16 (6-20) Glucose Level 114mg/dL (70-99) Calcium Level 9.5mg/dL (8.5-10.1) Total Bilirubin 1.1mg/dL (0.2-1.0) Aspartate Amino Transf (AST/SGOT) 13U/L (15-37) Alanine Aminotransferase (ALT/SGPT) 14U/L (14-59) Alkaline Phosphatase 44U/L (46-116) Total Protein 7.9g/dL (6.4-8.2) Albumin 4.0g/dL (3.4-5.0) Albumin/Globulin Ratio 1.0 (1.0-1.7) Lipase 96U/L (73-393) Nasal Screen MRSA (PCR) Positive (Negative) Glucose (Fingerstick) 103mg/dL (70-99) 75mg/dL (70-99) Test 12/22/16 09:10 12/22/16 12:28 12/22/16 17:09 12/22/16 21:40 White Blood Count 5.2x10^3/uL (4.0-11.0) Red Blood Count 2.24x10^6/uL (3.50-5.40) Hemoglobin 8.1g/dL (12.0-15.5) Hematocrit 23.6% (36.0-47.0) Mean Corpuscular Volume 105fL (79-100) Mean Corpuscular Hemoglobin 36pg (25-35) Mean Corpuscular Hemoglobin Concent 34g/dL (31-37) Red Cell Distribution Width 18.8% (11.5-14.5) Platelet Count 155x10^3/uL (140-400) Neutrophils (%) (Auto) 41% (31-73) Lymphocytes (%) (Auto) 45% (24-48) Monocytes (%) (Auto) 11% (0-9) Eosinophils (%) (Auto) 1% (0-3) Basophils (%) (Auto) 1% (0-3) Neutrophils # (Auto) 2.2x10^3uL (1.8-7.7) Lymphocytes # (Auto) 2.4x10^3/uL (1.0-4.8) Monocytes # (Auto) 0.6x10^3/uL (0.0-1.1) Eosinophils # (Auto) 0.1x10^3/uL (0.0-0.7) Basophils # (Auto) 0.0x10^3/uL (0.0-0.2) Sodium Level 139mmol/L (136-145) Potassium Level 4.3mmol/L (3.5-5.1) Chloride Level 103mmol/L (98-107) Carbon Dioxide Level 26mmol/L (21-32) Anion Gap 10 (6-14) Blood Urea Nitrogen 12mg/dL (7-20) Creatinine 0.7mg/dL (0.6-1.0) Estimated GFR (Cockcroft-Gault) 95.8 Glucose Level 84mg/dL (70-99) Calcium Level 8.7mg/dL (8.5-10.1) Thyroid Stimulating Hormone (TSH) 0.562uIU/mL (0.358-3.74) Glucose (Fingerstick) 83mg/dL (70-99) 86mg/dL (70-99) 64mg/dL (70-99) Test 12/23/16 05:20 White Blood Count 4.9x10^3/uL (4.0-11.0) Red Blood Count 2.05x10^6/uL (3.50-5.40) Hemoglobin 7.4g/dL (12.0-15.5) Hematocrit 21.4% (36.0-47.0) Mean Corpuscular Volume 104fL (79-100) Mean Corpuscular Hemoglobin 36pg (25-35) Mean Corpuscular Hemoglobin Concent 35g/dL (31-37) Red Cell Distribution Width 19.0% (11.5-14.5) Platelet Count 139x10^3/uL (140-400) Neutrophils (%) (Auto) 47% (31-73) Lymphocytes (%) (Auto) 42% (24-48) Monocytes (%) (Auto) 9% (0-9) Eosinophils (%) (Auto) 1% (0-3) Basophils (%) (Auto) 1% (0-3) Neutrophils # (Auto) 2.3x10^3uL (1.8-7.7) Lymphocytes # (Auto) 2.1x10^3/uL (1.0-4.8) Monocytes # (Auto) 0.5x10^3/uL (0.0-1.1) Eosinophils # (Auto) 0.1x10^3/uL (0.0-0.7) Basophils # (Auto) 0.0x10^3/uL (0.0-0.2) Sodium Level 139mmol/L (136-145) Potassium Level 4.1mmol/L (3.5-5.1) Chloride Level 104mmol/L (98-107) Carbon Dioxide Level 26mmol/L (21-32) Anion Gap 9 (6-14) Blood Urea Nitrogen 11mg/dL (7-20) Creatinine 0.7mg/dL (0.6-1.0) Estimated GFR (Cockcroft-Gault) 95.8 BUN/Creatinine Ratio 16 (6-20) Glucose Level 72mg/dL (70-99) Calcium Level 8.9mg/dL (8.5-10.1) Magnesium Level 1.9mg/dL (1.8-2.4) Total Bilirubin 1.2mg/dL (0.2-1.0) Aspartate Amino Transf (AST/SGOT) 19U/L (15-37) Alanine Aminotransferase (ALT/SGPT) 12U/L (14-59) Alkaline Phosphatase 37U/L (46-116) Total Protein 6.4g/dL (6.4-8.2) Albumin 3.3g/dL (3.4-5.0) Albumin/Globulin Ratio 1.1 (1.0-1.7) Laboratory Tests Test 12/22/16 12:28 12/22/16 17:09 12/22/16 21:40 12/23/16 05:20 Glucose (Fingerstick) 83mg/dL (70-99) 86mg/dL (70-99) 64mg/dL (70-99) White Blood Count 4.9x10^3/uL (4.0-11.0) Red Blood Count 2.05x10^6/uL (3.50-5.40) Hemoglobin 7.4g/dL (12.0-15.5) Hematocrit 21.4% (36.0-47.0) Mean Corpuscular Volume 104fL (79-100) Mean Corpuscular Hemoglobin 36pg (25-35) Mean Corpuscular Hemoglobin Concent 35g/dL (31-37) Red Cell Distribution Width 19.0% (11.5-14.5) Platelet Count 139x10^3/uL (140-400) Neutrophils (%) (Auto) 47% (31-73) Lymphocytes (%) (Auto) 42% (24-48) Monocytes (%) (Auto) 9% (0-9) Eosinophils (%) (Auto) 1% (0-3) Basophils (%) (Auto) 1% (0-3) Neutrophils # (Auto) 2.3x10^3uL (1.8-7.7) Lymphocytes # (Auto) 2.1x10^3/uL (1.0-4.8) Monocytes # (Auto) 0.5x10^3/uL (0.0-1.1) Eosinophils # (Auto) 0.1x10^3/uL (0.0-0.7) Basophils # (Auto) 0.0x10^3/uL (0.0-0.2) Sodium Level 139mmol/L (136-145) Potassium Level 4.1mmol/L (3.5-5.1) Chloride Level 104mmol/L (98-107) Carbon Dioxide Level 26mmol/L (21-32) Anion Gap 9 (6-14) Blood Urea Nitrogen 11mg/dL (7-20) Creatinine 0.7mg/dL (0.6-1.0) Estimated GFR (Cockcroft-Gault) 95.8 BUN/Creatinine Ratio 16 (6-20) Glucose Level 72mg/dL (70-99) Calcium Level 8.9mg/dL (8.5-10.1) Magnesium Level 1.9mg/dL (1.8-2.4) Total Bilirubin 1.2mg/dL (0.2-1.0) Aspartate Amino Transf (AST/SGOT) 19U/L (15-37) Alanine Aminotransferase (ALT/SGPT) 12U/L (14-59) Alkaline Phosphatase 37U/L (46-116) Total Protein 6.4g/dL (6.4-8.2) Albumin 3.3g/dL (3.4-5.0) Albumin/Globulin Ratio 1.1 (1.0-1.7) Problem List Problems Medical Problems: (1) Small bowel obstruction Status: Acute Assessment/Plan check plain films will review with Dr Crump Problems: ARISTIDES CRUMP MD 12/23/16 1225: SURGICAL PROGRESS NOTE Assessment/Plan Liquid stool, diffuse bowel gas likely ileus. Continue bowel rest. Problems: RORY CAMPA APRN Dec 23, 2016 10:33 ARISTIDES CRMUP MD Dec 23, 2016 12:25
[2016-12-23 11:00] VITALS: BP_SYST 139; BP_SYST 149; BP_DIAS 79; BP_DIAS 89
[2016-12-23 14:56] VITALS: BP 139/62
--- NOTE | 2016-12-23 15:26 | PDOC ---
PROGRESS NOTES Chief Complaint Chief Complaint impaction vs ileus ASSESSMENT AND PLAN: 1. Impaction vs Ileus: NPO. surgical service following 2. Anemia stable. Macrocytic. B12/folate deficiency vs MDS. labs pending 3. Asthma: stable. nebs PRN 4. Dehydration: resolved 5. Gen weakness: OT/PT 6. Prophylaxis: lovenox Vitals Vitals Vital Signs Date Time Temp Pulse Resp B/P Pulse Ox O2 Delivery O2 Flow Rate FiO2 12/23/16 14:56 97.5 76 18 139/62 95 Room Air 97.5 Physical Exam General: Alert, Cooperative, No acute distress Heart: Regular rate, Normal S1, Normal S2 Lungs: Clear Abdomen: Soft, No tenderness, Other (distended,) Extremities: No edema Skin: No rashes, No breakdown Labs LABS Laboratory Tests Test 12/22/16 17:09 12/22/16 21:40 12/23/16 05:20 Glucose (Fingerstick) 86mg/dL (70-99) 64mg/dL (70-99) White Blood Count 4.9x10^3/uL (4.0-11.0) Red Blood Count 2.05x10^6/uL (3.50-5.40) Hemoglobin 7.4g/dL (12.0-15.5) Hematocrit 21.4% (36.0-47.0) Mean Corpuscular Volume 104fL (79-100) Mean Corpuscular Hemoglobin 36pg (25-35) Mean Corpuscular Hemoglobin Concent 35g/dL (31-37) Red Cell Distribution Width 19.0% (11.5-14.5) Platelet Count 139x10^3/uL (140-400) Neutrophils (%) (Auto) 47% (31-73) Lymphocytes (%) (Auto) 42% (24-48) Monocytes (%) (Auto) 9% (0-9) Eosinophils (%) (Auto) 1% (0-3) Basophils (%) (Auto) 1% (0-3) Neutrophils # (Auto) 2.3x10^3uL (1.8-7.7) Lymphocytes # (Auto) 2.1x10^3/uL (1.0-4.8) Monocytes # (Auto) 0.5x10^3/uL (0.0-1.1) Eosinophils # (Auto) 0.1x10^3/uL (0.0-0.7) Basophils # (Auto) 0.0x10^3/uL (0.0-0.2) Sodium Level 139mmol/L (136-145) Potassium Level 4.1mmol/L (3.5-5.1) Chloride Level 104mmol/L (98-107) Carbon Dioxide Level 26mmol/L (21-32) Anion Gap 9 (6-14) Blood Urea Nitrogen 11mg/dL (7-20) Creatinine 0.7mg/dL (0.6-1.0) Estimated GFR (Cockcroft-Gault) 95.8 BUN/Creatinine Ratio 16 (6-20) Glucose Level 72mg/dL (70-99) Calcium Level 8.9mg/dL (8.5-10.1) Magnesium Level 1.9mg/dL (1.8-2.4) Total Bilirubin 1.2mg/dL (0.2-1.0) Aspartate Amino Transf (AST/SGOT) 19U/L (15-37) Alanine Aminotransferase (ALT/SGPT) 12U/L (14-59) Alkaline Phosphatase 37U/L (46-116) Total Protein 6.4g/dL (6.4-8.2) Albumin 3.3g/dL (3.4-5.0) Albumin/Globulin Ratio 1.1 (1.0-1.7) Review of Systems Review of Systems feels ok, denies abd pain Comment Review of Relevant ANTOINETTE PATTERSON MD Dec 23, 2016 15:26
[2016-12-23] MEDS: ACETAMINOPHEN 325 MG TABLET. PO PRN (15:49)
--- NOTE | 2016-12-23 15:52 | RAD ---
INDICATION: Follow-up of ileus COMPARISON: 12/22/2016 IMPRESSION: 3 views of chest and abdomen obtained. No definite focal airspace consolidation within the lungs to suggest pneumonia. Degenerative changes of the shoulders. Calcified lymph nodes in the mediastinum could be sequela of old granulomatous disease. No intraperitoneal free air. Persistent air-filled dilation throughout the bowel loops is seen and again could be from ileus although distal obstructive process also within the differential. Degenerative changes throughout spine. Calcific atherosclerosis. There is a tube seen in the left arm. Could be secondary to a PICC line that terminates in the left upper arm.
[2016-12-23] MEDS: AA 3%/ELECTROLYTE-TPN SOLN/GLY 1,000 ML IV SCH (17:30)
[2016-12-23 19:56] VITALS: BP 160/76
[2016-12-23] MEDS: ENOXAPARIN 40 MG/0.4 ML DISP.SYRIN. SQ SCH (20:40)
[2016-12-23 23:21] VITALS: BP 169/70
[2016-12-24 03:23] VITALS: BP 175/87
[2016-12-24] MEDS: ACETAMINOPHEN 325 MG TABLET. PO PRN ×2 (03:42→09:46)
[2016-12-24] MEDS: AA 3%/ELECTROLYTE-TPN SOLN/GLY 1,000 ML IV SCH ×2 (06:46→18:23)
[2016-12-24 07:00] VITALS: BP 171/70
--- NOTE | 2016-12-24 08:28 | PDOC ---
SURGICAL PROGRESS NOTE Subjective Doing well, doesn't know why she is here in the hospital. Wants to eat. Denies N /V or pain Vital Signs Vital Signs Date Time Temp Pulse Resp B/P Pulse Ox O2 Delivery O2 Flow Rate FiO2 12/24/16 03:23 98.4 88 18 175/87 99 Room Air 98.4 I&O Intake and Output 12/24/16 06:59 Intake Total 120 ml Balance 120 ml Intake Oral 120 ml # Voids 6 # Bowel Movements 1 PATIENT HAS A SANTAMARIA: No General: Alert, Oriented X3, Cooperative, No acute distress Abdomen: Normal bowel sounds, Soft, No tenderness Labs Laboratory Tests Test 12/22/16 09:10 12/22/16 12:28 12/22/16 17:09 12/22/16 21:40 White Blood Count 5.2x10^3/uL (4.0-11.0) Red Blood Count 2.24x10^6/uL (3.50-5.40) Hemoglobin 8.1g/dL (12.0-15.5) Hematocrit 23.6% (36.0-47.0) Mean Corpuscular Volume 105fL (79-100) Mean Corpuscular Hemoglobin 36pg (25-35) Mean Corpuscular Hemoglobin Concent 34g/dL (31-37) Red Cell Distribution Width 18.8% (11.5-14.5) Platelet Count 155x10^3/uL (140-400) Neutrophils (%) (Auto) 41% (31-73) Lymphocytes (%) (Auto) 45% (24-48) Monocytes (%) (Auto) 11% (0-9) Eosinophils (%) (Auto) 1% (0-3) Basophils (%) (Auto) 1% (0-3) Neutrophils # (Auto) 2.2x10^3uL (1.8-7.7) Lymphocytes # (Auto) 2.4x10^3/uL (1.0-4.8) Monocytes # (Auto) 0.6x10^3/uL (0.0-1.1) Eosinophils # (Auto) 0.1x10^3/uL (0.0-0.7) Basophils # (Auto) 0.0x10^3/uL (0.0-0.2) Sodium Level 139mmol/L (136-145) Potassium Level 4.3mmol/L (3.5-5.1) Chloride Level 103mmol/L (98-107) Carbon Dioxide Level 26mmol/L (21-32) Anion Gap 10 (6-14) Blood Urea Nitrogen 12mg/dL (7-20) Creatinine 0.7mg/dL (0.6-1.0) Estimated GFR (Cockcroft-Gault) 95.8 Glucose Level 84mg/dL (70-99) Calcium Level 8.7mg/dL (8.5-10.1) Thyroid Stimulating Hormone (TSH) 0.562uIU/mL (0.358-3.74) Glucose (Fingerstick) 83mg/dL (70-99) 86mg/dL (70-99) 64mg/dL (70-99) Test 12/23/16 05:20 12/23/16 19:26 12/24/16 07:21 White Blood Count 4.9x10^3/uL (4.0-11.0) Red Blood Count 2.05x10^6/uL (3.50-5.40) Hemoglobin 7.4g/dL (12.0-15.5) Hematocrit 21.4% (36.0-47.0) Mean Corpuscular Volume 104fL (79-100) Mean Corpuscular Hemoglobin 36pg (25-35) Mean Corpuscular Hemoglobin Concent 35g/dL (31-37) Red Cell Distribution Width 19.0% (11.5-14.5) Platelet Count 139x10^3/uL (140-400) Neutrophils (%) (Auto) 47% (31-73) Lymphocytes (%) (Auto) 42% (24-48) Monocytes (%) (Auto) 9% (0-9) Eosinophils (%) (Auto) 1% (0-3) Basophils (%) (Auto) 1% (0-3) Neutrophils # (Auto) 2.3x10^3uL (1.8-7.7) Lymphocytes # (Auto) 2.1x10^3/uL (1.0-4.8) Monocytes # (Auto) 0.5x10^3/uL (0.0-1.1) Eosinophils # (Auto) 0.1x10^3/uL (0.0-0.7) Basophils # (Auto) 0.0x10^3/uL (0.0-0.2) Sodium Level 139mmol/L (136-145) Potassium Level 4.1mmol/L (3.5-5.1) Chloride Level 104mmol/L (98-107) Carbon Dioxide Level 26mmol/L (21-32) Anion Gap 9 (6-14) Blood Urea Nitrogen 11mg/dL (7-20) Creatinine 0.7mg/dL (0.6-1.0) Estimated GFR (Cockcroft-Gault) 95.8 BUN/Creatinine Ratio 16 (6-20) Glucose Level 72mg/dL (70-99) Calcium Level 8.9mg/dL (8.5-10.1) Magnesium Level 1.9mg/dL (1.8-2.4) Total Bilirubin 1.2mg/dL (0.2-1.0) Aspartate Amino Transf (AST/SGOT) 19U/L (15-37) Alanine Aminotransferase (ALT/SGPT) 12U/L (14-59) Alkaline Phosphatase 37U/L (46-116) Total Protein 6.4g/dL (6.4-8.2) Albumin 3.3g/dL (3.4-5.0) Albumin/Globulin Ratio 1.1 (1.0-1.7) Glucose (Fingerstick) 75mg/dL (70-99) 84mg/dL (70-99) Laboratory Tests Test 12/23/16 19:26 12/24/16 07:21 Glucose (Fingerstick) 75mg/dL (70-99) 84mg/dL (70-99) Problem List Problems Medical Problems: (1) Small bowel obstruction Status: Acute Assessment/Plan Passing loose stools, no N/V Adv diet to clears Problems: ARISTIDES CRUMP MD Dec 24, 2016 08:28
--- NOTE | 2016-12-24 10:32 | PDOC ---
PROGRESS NOTES Chief Complaint Chief Complaint impaction vs ileus ASSESSMENT AND PLAN: 1. Impaction vs Ileus: clinically resolving. start clear liquids. surgical service following 2. Neck pain: severe, musculoskeletal. muscle relaxants, pain meds, heat 3. Anemia stable. Macrocytic. B12/folate deficiency vs MDS. labs (still) pending 4. Asthma: stable. nebs PRN 5. Dehydration: resolved 6. Gen weakness: OT/PT 7. Prophylaxis: lovenox Vitals Vitals Vital Signs Date Time Temp Pulse Resp B/P Pulse Ox O2 Delivery O2 Flow Rate FiO2 12/24/16 07:00 97.9 91 20 171/70 100 Room Air 97.9 Physical Exam General: Alert, Oriented X3, Cooperative, No acute distress Heart: Regular rate, Normal S1, Normal S2 Lungs: Clear Abdomen: Normal bowel sounds, Soft, No tenderness Extremities: No edema Skin: No rashes, No breakdown Labs LABS Laboratory Tests Test 12/23/16 19:26 12/24/16 07:21 Glucose (Fingerstick) 75mg/dL (70-99) 84mg/dL (70-99) Review of Systems Review of Systems severe neck pain, not able to move head at all. ANTOINETTE PATTERSON MD Dec 24, 2016 10:32
[2016-12-24 11:00] VITALS: BP 142/78
[2016-12-24] MEDS ORDERED: MORPHINE SULFATE 2 MG/ML DISP.SYRIN. IV PRN (12:00)
[2016-12-24] MEDS ORDERED: MORPHINE SULFATE 2 MG/ML DISP.SYRIN. IV ONE (12:00)
[2016-12-24] MEDS: CYCLOBENZAPRINE 10 MG TABLET. PO PRN ×2 (12:40→23:20)
[2016-12-24 15:00] VITALS: BP 138/79
[2016-12-24 19:25] VITALS: BP 179/75
[2016-12-24] MEDS: ENOXAPARIN 40 MG/0.4 ML DISP.SYRIN. SQ SCH ×2 (20:36→20:38)
[2016-12-24 21:23] LABS: FOLIC ACID >19.9 ng/mL (>3.0)
[2016-12-24 23:27] VITALS: BP 130/53
[2016-12-25 03:27] VITALS: BP 162/76
[2016-12-25 07:30] VITALS: BP 143/74
[2016-12-25] MEDS: AA 3%/ELECTROLYTE-TPN SOLN/GLY 1,000 ML IV SCH ×2 (07:53→21:23)
--- NOTE | 2016-12-25 09:11 | PDOC ---
SURGICAL PROGRESS NOTE Subjective Patient awake and laert, complains of neck pain. No N/V or abdominal pain. Tolerating clear liquids although she has not taken much. Vital Signs Vital Signs Date Time Temp Pulse Resp B/P Pulse Ox O2 Delivery O2 Flow Rate FiO2 12/25/16 07:30 98.1 89 20 143/74 99 Room Air 98.1 I&O Intake and Output 12/25/16 07:00 Intake Total 550 ml Output Total 2 ml Balance 548 ml Intake Oral 550 ml Output Urine Total 2 ml # Voids 8 PATIENT HAS A SANTAMARIA: No General: Alert, Oriented X3, Cooperative, No acute distress Abdomen: Normal bowel sounds, Soft, No tenderness Labs Laboratory Tests Test 12/23/16 19:26 12/24/16 07:21 12/24/16 11:08 12/24/16 20:34 Glucose (Fingerstick) 75mg/dL (70-99) 84mg/dL (70-99) 125mg/dL (70-99) 99mg/dL (70-99) Test 12/25/16 07:43 Glucose (Fingerstick) 111mg/dL (70-99) Laboratory Tests Test 12/24/16 11:08 12/24/16 20:34 12/25/16 07:43 Glucose (Fingerstick) 125mg/dL (70-99) 99mg/dL (70-99) 111mg/dL (70-99) Problem List Problems Medical Problems: (1) Small bowel obstruction Status: Acute Assessment/Plan Resolving ileus Supportive care Adv diet as tolerated Problems: ARISTIDES CRUMP MD Dec 25, 2016 09:11
[2016-12-25 11:00] VITALS: BP 115/53
--- NOTE | 2016-12-25 12:35 | PDOC ---
PROGRESS NOTES Chief Complaint Chief Complaint impaction vs ileus ASSESSMENT AND PLAN: 1. Impaction vs Ileus: clinically resolving. advance diet surgical service following 2. Neck pain: severe, musculoskeletal. muscle relaxants, pain meds, heat. obtain CT neck 3. Anemia stable. Macrocytic. B12/folate WNL. suspect MDS. consider Hem consult bor BM, but benefit may not outweigh ASE 4. Asthma: stable. nebs PRN 5. Dehydration: resolved 6. Gen weakness: OT/PT 7. Prophylaxis: lovenox 8. Dispo: prob d/c to SNF in AM Vitals Vitals Vital Signs Date Time Temp Pulse Resp B/P Pulse Ox O2 Delivery O2 Flow Rate FiO2 12/25/16 07:30 98.1 89 20 143/74 99 Room Air 98.1 Physical Exam General: Alert, Oriented X3, Cooperative, No acute distress Heart: Regular rate, Normal S1, Normal S2 Lungs: Clear Abdomen: Normal bowel sounds, Soft, No tenderness Extremities: No edema Skin: No rashes, No breakdown Labs LABS Laboratory Tests Test 12/24/16 20:34 12/25/16 07:43 Glucose (Fingerstick) 99mg/dL (70-99) 111mg/dL (70-99) Review of Systems Review of Systems neck pain persisting, albeit a little better. ANTOINETTE PATTERSON MD Dec 25, 2016 12:35
[2016-12-25] MEDS: CYCLOBENZAPRINE 10 MG TABLET. PO PRN (12:44)
[2016-12-25 13:04] LABS: BASO # 0.1 x10^3/uL (0.0-0.2); BASO % 1 % (0-3); EOS % 1 % (0-3); HEMATOCRIT 23.2 % (36.0-47.0); HEMOGLOBIN 8.1 g/dL (12.0-15.5); LYMPH # 2.3 x10^3/uL (1.0-4.8); LYMPH % 33 % (24-48); MEAN CORPUSCULAR HEMOGLOBIN 36 pg (25-35); MEAN CORPUSCULAR HGB CONC 35 g/dL (31-37); MEAN CORPUSCULAR VOLUME 105 fL (79-100); MONO % 13 % (0-9); NEUT % 53 % (31-73); PLATELET COUNT 186 x10^3/uL (140-400); RED BLOOD COUNT 2.22 x10^6/uL (3.50-5.40); RED CELL DISTRIBUTION WIDTH 19.3 % (11.5-14.5); WHITE BLOOD COUNT 7.1 x10^3/uL (4.0-11.0)
[2016-12-25 13:08] LABS: CALCIUM 9.2 mg/dL (8.5-10.1); CREATININE 0.7 mg/dL (0.6-1.0); GFR 95.8; POTASSIUM 4.2 mmol/L (3.5-5.1)
[2016-12-25 13:49] LABS: % BASOS 1 % (0-3); % EOS 4 % (0-5); PLT ESTIMATE ADEQUATE (ADEQUATE)
[2016-12-25 13:50] LABS: ANISOCYTOSIS SLIGHT
[2016-12-25 15:00] VITALS: BP 126/64
[2016-12-25 19:00] VITALS: BP 159/76
[2016-12-25] MEDS: ENOXAPARIN 40 MG/0.4 ML DISP.SYRIN. SQ SCH (21:00)
[2016-12-25 23:00] VITALS: BP 140/61
[2016-12-26 03:00] VITALS: BP 143/70
[2016-12-26 07:00] VITALS: BP 155/82
--- NOTE | 2016-12-26 09:27 | PDOC ---
PROGRESS NOTES Chief Complaint Chief Complaint impaction vs ileus ASSESSMENT AND PLAN: 1. Impaction vs Ileus: resolved 2. Neck pain: severe, musculoskeletal. muscle relaxants, pain meds, heat. CT neck 3. Anemia stable. Macrocytic. B12/folate WNL. suspect MDS. consider Hem consult bor BM, but benefit may not outweigh ASE 4. Asthma: stable. nebs PRN 5. Dehydration: resolved 6. Gen weakness: OT/PT 7. Prophylaxis: lovenox 8. Dispo: d/c to SNF Vitals Vitals Vital Signs Date Time Temp Pulse Resp B/P Pulse Ox O2 Delivery O2 Flow Rate FiO2 12/26/16 07:00 98.0 103 12 155/82 99 Room Air 98.0 Physical Exam General: Alert, Oriented X3, Cooperative, No acute distress Heart: Regular rate, Normal S1, Normal S2 Lungs: Clear Abdomen: Normal bowel sounds, Soft, No tenderness Extremities: No edema Skin: No rashes, No breakdown Labs LABS Laboratory Tests Test 12/25/16 12:45 White Blood Count 7.1x10^3/uL (4.0-11.0) Red Blood Count 2.22x10^6/uL (3.50-5.40) Hemoglobin 8.1g/dL (12.0-15.5) Hematocrit 23.2% (36.0-47.0) Mean Corpuscular Volume 105fL (79-100) Mean Corpuscular Hemoglobin 36pg (25-35) Mean Corpuscular Hemoglobin Concent 35g/dL (31-37) Red Cell Distribution Width 19.3% (11.5-14.5) Platelet Count 186x10^3/uL (140-400) Neutrophils (%) (Auto) 53% (31-73) Lymphocytes (%) (Auto) 33% (24-48) Monocytes (%) (Auto) 13% (0-9) Eosinophils (%) (Auto) 1% (0-3) Basophils (%) (Auto) 1% (0-3) Neutrophils # (Auto) 3.7x10^3uL (1.8-7.7) Lymphocytes # (Auto) 2.3x10^3/uL (1.0-4.8) Monocytes # (Auto) 0.9x10^3/uL (0.0-1.1) Eosinophils # (Auto) 0.1x10^3/uL (0.0-0.7) Basophils # (Auto) 0.1x10^3/uL (0.0-0.2) Segmented Neutrophils % 56% (35-66) Band Neutrophils % 5% (0-9) Lymphocytes % 24% (24-48) Monocytes % 10% (0-10) Eosinophils % 4% (0-5) Basophils % 1% (0-3) Platelet Estimate Adequate (ADEQUATE) Giant Platelets Few Anisocytosis Slight Sodium Level 135mmol/L (136-145) Potassium Level 4.2mmol/L (3.5-5.1) Chloride Level 100mmol/L (98-107) Carbon Dioxide Level 26mmol/L (21-32) Anion Gap 9 (6-14) Blood Urea Nitrogen 15mg/dL (7-20) Creatinine 0.7mg/dL (0.6-1.0) Estimated GFR (Cockcroft-Gault) 95.8 Glucose Level 133mg/dL (70-99) Calcium Level 9.2mg/dL (8.5-10.1) Review of Systems Review of Systems feels much better, neck still achy, but able to move Assessment and Plan Assessmemt and Plan Problems: Comment Review of Relevant Labs Laboratory Tests Test 12/24/16 11:08 12/24/16 20:34 12/25/16 07:43 12/25/16 12:45 Glucose (Fingerstick) 125mg/dL (70-99) 99mg/dL (70-99) 111mg/dL (70-99) White Blood Count 7.1x10^3/uL (4.0-11.0) Red Blood Count 2.22x10^6/uL (3.50-5.40) Hemoglobin 8.1g/dL (12.0-15.5) Hematocrit 23.2% (36.0-47.0) Mean Corpuscular Volume 105fL (79-100) Mean Corpuscular Hemoglobin 36pg (25-35) Mean Corpuscular Hemoglobin Concent 35g/dL (31-37) Red Cell Distribution Width 19.3% (11.5-14.5) Platelet Count 186x10^3/uL (140-400) Neutrophils (%) (Auto) 53% (31-73) Lymphocytes (%) (Auto) 33% (24-48) Monocytes (%) (Auto) 13% (0-9) Eosinophils (%) (Auto) 1% (0-3) Basophils (%) (Auto) 1% (0-3) Neutrophils # (Auto) 3.7x10^3uL (1.8-7.7) Lymphocytes # (Auto) 2.3x10^3/uL (1.0-4.8) Monocytes # (Auto) 0.9x10^3/uL (0.0-1.1) Eosinophils # (Auto) 0.1x10^3/uL (0.0-0.7) Basophils # (Auto) 0.1x10^3/uL (0.0-0.2) Segmented Neutrophils % 56% (35-66) Band Neutrophils % 5% (0-9) Lymphocytes % 24% (24-48) Monocytes % 10% (0-10) Eosinophils % 4% (0-5) Basophils % 1% (0-3) Platelet Estimate Adequate (ADEQUATE) Giant Platelets Few Anisocytosis Slight Sodium Level 135mmol/L (136-145) Potassium Level 4.2mmol/L (3.5-5.1) Chloride Level 100mmol/L (98-107) Carbon Dioxide Level 26mmol/L (21-32) Anion Gap 9 (6-14) Blood Urea Nitrogen 15mg/dL (7-20) Creatinine 0.7mg/dL (0.6-1.0) Estimated GFR (Cockcroft-Gault) 95.8 Glucose Level 133mg/dL (70-99) Calcium Level 9.2mg/dL (8.5-10.1) Laboratory Tests Test 12/25/16 12:45 White Blood Count 7.1x10^3/uL (4.0-11.0) Red Blood Count 2.22x10^6/uL (3.50-5.40) Hemoglobin 8.1g/dL (12.0-15.5) Hematocrit 23.2% (36.0-47.0) Mean Corpuscular Volume 105fL (79-100) Mean Corpuscular Hemoglobin 36pg (25-35) Mean Corpuscular Hemoglobin Concent 35g/dL (31-37) Red Cell Distribution Width 19.3% (11.5-14.5) Platelet Count 186x10^3/uL (140-400) Neutrophils (%) (Auto) 53% (31-73) Lymphocytes (%) (Auto) 33% (24-48) Monocytes (%) (Auto) 13% (0-9) Eosinophils (%) (Auto) 1% (0-3) Basophils (%) (Auto) 1% (0-3) Neutrophils # (Auto) 3.7x10^3uL (1.8-7.7) Lymphocytes # (Auto) 2.3x10^3/uL (1.0-4.8) Monocytes # (Auto) 0.9x10^3/uL (0.0-1.1) Eosinophils # (Auto) 0.1x10^3/uL (0.0-0.7) Basophils # (Auto) 0.1x10^3/uL (0.0-0.2) Segmented Neutrophils % 56% (35-66) Band Neutrophils % 5% (0-9) Lymphocytes % 24% (24-48) Monocytes % 10% (0-10) Eosinophils % 4% (0-5) Basophils % 1% (0-3) Platelet Estimate Adequate (ADEQUATE) Giant Platelets Few Anisocytosis Slight Sodium Level 135mmol/L (136-145) Potassium Level 4.2mmol/L (3.5-5.1) Chloride Level 100mmol/L (98-107) Carbon Dioxide Level 26mmol/L (21-32) Anion Gap 9 (6-14) Blood Urea Nitrogen 15mg/dL (7-20) Creatinine 0.7mg/dL (0.6-1.0) Estimated GFR (Cockcroft-Gault) 95.8 Glucose Level 133mg/dL (70-99) Calcium Level 9.2mg/dL (8.5-10.1) Medications Current Medications Sodium Chloride (Iv Sodium Chloride 0.9% 1000ml Bag) 1,000 ml @ 100 mls/hr Q10H IV ; Start 12/21/16 at 14:09; Stop 12/21/16 at 20:00; Status DC Ondansetron HCl 4 mg 4 mg PRN Q8HRS PRN IV NAUSEA/VOMITING; Start 12/21/16 at 15:30; Stop 12/22/16 at 15:28; Status DC Sodium Chloride (Iv Sodium Chloride 0.9% 1000ml Bag) 1,000 ml @ 100 mls/hr Q10H IV Last administered on 12/22/16 10:53; Start 12/21/16 at 15:20; Stop at 15:19; Status DC Acetaminophen (Tylenol) 325 mg PRN Q6HRS PRN PO MILD PAIN / TEMP Last administered on 12/24/16 09:46; Start 12/21/16 at 18:45 Hydralazine HCl (Apresoline) 10 mg PRN Q4HRS PRN IVP ELEVATED BP, SEE COMMENTS Last administered on 12/24/16 21:08; Start 12/21/16 at 18:45 Ondansetron HCl (Zofran) 4 mg PRN Q8HRS PRN IV NAUSEA/VOMITING Last administered on 12/24/16 22:11; Start 12/21/16 at 18:45 Albuterol Sulfate (Ventolin Neb Soln) 2.5 mg PRN Q4HRS PRN NEB SHORTNESS OF BREATH; Start 12/21/16 at 18:45 Enoxaparin Sodium (Lovenox 30mg Syringe) 30 mg Q24H SQ Last administered on 18:33; Start 12/21/16 at 19:00; Stop 12/23/16 at 13:50; Status DC Metoprolol Tartrate (Lopressor) 2.5 mg Q6HRS IVP ; Start 12/22/16 at 00:00; Stop 12/22/16 at 00:00; Status DC Metoprolol Tartrate (Lopressor) 2.5 mg PRN Q6HRS PRN IVP BLOODPRESSURE CONTROL ; Start 12/21/16 at 18:39 Lorazepam (Ativan Intensol) 1 mg 1X ONCE SL Last administered on 12/21/16 19: 59; Start 12/21/16 at 19:30; Stop 12/21/16 at 19:32; Status DC Dextrose 12.5 gm PRN Q15MIN PRN IV SEE COMMENTS Last administered on 12/22/16 23:15; Start 12/22/16 at 22:00; Stop 12/23/16 at 17:25; Status DC Enoxaparin Sodium 40 mg 40 mg Q24H SQ Last administered on 12/23/16 20:40; Start 12/23/16 at 21:00 Amino Acids/ Glycerin/ Electrolytes (Procalamine) 1,000 ml @ 80 mls/hr [id number] IV Last administered on 12/25/16 21:23; Start 12/23/16 at 17:30 Morphine Sulfate 1 mg PRN Q2HR PRN IV PAIN Last administered on 12/24/16 18:23 ; Start 12/24/16 at 12:00 Morphine Sulfate 2 mg 1X ONCE IV Last administered on 12/24/16 12:41; Start 12/24/16 at 12:00; Stop 12/24/16 at 12:01; Status DC Cyclobenzaprine HCl (Flexeril) 10 mg PRN Q6HRS PRN PO MUSCLE SPASMS Last administered on 12/25/16 12:44; Start 12/24/16 at 12:00 Active Scripts Active Atenolol 25 Mg Tablet 25 Mg PO DAILY 30 Days Folic Acid 1 Mg Tablet 1 Tab PO DAILY Reported Diclofenac Sodium 100 Gm Gel..gram. 100 Gm TP QID Metoprolol Succinate 50 Mg Tab.er.24h 25 Mg PO DAILY Reglan (Metoclopramide Hcl) 5 Mg Tablet 5 Mg PO TID K-Tab ER (Potassium Chloride) 20 Meq Tablet.er 60 Meq PO DAILY Furosemide 20 Mg Tablet 1 Tab PO DAILY Lactulose 20 Gm/30 Ml Solution 20 Gm PO PRN DAILY PRN Duoneb 0.5-3(2.5) Mg/3 Ml (Albuterol/Ipratropium) 3 Ml Ampul.neb 3 Ml NEB PRN Q4HRS PRN Bisacodyl 10 Mg Supp.rect 10 Mg RC PRN DAILY PRN Aspirin 81 Mg Tab.chew 1 Tab PO DAILY Zofran Odt (Ondansetron) 4 Mg Tab.rapdis 1 Tab SL PRN Q6HRS PRN NITROGLYCERIN SubLingual (Nitroglycerin) 0.4 Mg Tab.subl 1 Tab SL PRN Q5MIN PRN Guaifenesin 100 Mg/5 Ml Liquid 200 Mg PO PRN Q6HRS PRN Magnesium Oxide 400 Mg Tablet 400 Mg PO QID Protonix (Pantoprazole Sodium) 40 Mg Tablet.dr 1 Tab PO DAILY Demeclocycline Hcl 300 Mg Tablet 300 Mg PO TID Ferrous Sulfate 325 Mg Tablet 325 Mg PO BID Alum-Mag Hydroxide-Simeth Liq (Mag Hydrox/Al Hydrox/Simeth) 360 Ml Oral.susp 30 Ml PO PRN Q4HRS PRN Tylenol (Acetaminophen) 325 Mg Tablet 650 Mg PO PRN Q6HRS PRN Dulcolax (Bisacodyl) 5 Mg Tablet.dr 5 Mg PO PRN DAILY PRN Gabapentin 300 Mg Capsule 300 Mg PO HS Saline Nasal [place] (Sodium Chloride) 30 Ml [place] 1-2 [place] NS BID Miralax (Polyethylene Glycol 3350) 17 Gm Powd.pack 17 Gm PO DAILY Senna-S Tablet (Sennosides/Docusate Sodium) 1 Each Tablet 2 Each PO DAILY Vitals/I & O Vital Sign - Last 24 Hours 12/25/16 12/25/16 12/25/16 12/25/16 11:00 15:00 19:00 20:00 Temp 97.5 97.7 97.7 97.5 97.7 97.7 Pulse 100 96 101 Resp 18 B/P 115/53 126/64 159/76 Pulse Ox 99 96 98 O2 Delivery Room Air Room Air Room Air Room Air 12/25/16 12/26/16 12/26/16 23:00 03:00 07:00 Temp 98.3 98.1 98.0 98.3 98.1 98.0 Pulse 90 89 103 Resp 18 18 12 B/P 140/61 143/70 155/82 Pulse Ox 98 97 99 O2 Delivery Room Air Room Air Room Air Intake and Output 12/25/16 12/25/16 12/26/16 15:00 23:00 07:00 Intake Total 1160 ml Balance 1160 ml ANTOINETTE PATTERSON MD Dec 26, 2016 09:27
--- NOTE | 2016-12-26 09:49 | PDOC ---
SURGICAL PROGRESS NOTE Subjective tolerating diet no pain no nausea or emesis Vital Signs Vital Signs Date Time Temp Pulse Resp B/P Pulse Ox O2 Delivery O2 Flow Rate FiO2 12/26/16 07:00 98.0 103 12 155/82 99 Room Air 98.0 I&O Intake and Output 12/26/16 07:00 Intake Total 1160 ml Balance 1160 ml Intake Oral 200 ml IV Total 960 ml # Voids 7 General: Alert, Oriented X3, Cooperative, No acute distress Abdomen: Soft, No tenderness Labs Laboratory Tests Test 12/24/16 11:08 12/24/16 20:34 12/25/16 07:43 12/25/16 12:45 Glucose (Fingerstick) 125mg/dL (70-99) 99mg/dL (70-99) 111mg/dL (70-99) White Blood Count 7.1x10^3/uL (4.0-11.0) Red Blood Count 2.22x10^6/uL (3.50-5.40) Hemoglobin 8.1g/dL (12.0-15.5) Hematocrit 23.2% (36.0-47.0) Mean Corpuscular Volume 105fL (79-100) Mean Corpuscular Hemoglobin 36pg (25-35) Mean Corpuscular Hemoglobin Concent 35g/dL (31-37) Red Cell Distribution Width 19.3% (11.5-14.5) Platelet Count 186x10^3/uL (140-400) Neutrophils (%) (Auto) 53% (31-73) Lymphocytes (%) (Auto) 33% (24-48) Monocytes (%) (Auto) 13% (0-9) Eosinophils (%) (Auto) 1% (0-3) Basophils (%) (Auto) 1% (0-3) Neutrophils # (Auto) 3.7x10^3uL (1.8-7.7) Lymphocytes # (Auto) 2.3x10^3/uL (1.0-4.8) Monocytes # (Auto) 0.9x10^3/uL (0.0-1.1) Eosinophils # (Auto) 0.1x10^3/uL (0.0-0.7) Basophils # (Auto) 0.1x10^3/uL (0.0-0.2) Segmented Neutrophils % 56% (35-66) Band Neutrophils % 5% (0-9) Lymphocytes % 24% (24-48) Monocytes % 10% (0-10) Eosinophils % 4% (0-5) Basophils % 1% (0-3) Platelet Estimate Adequate (ADEQUATE) Giant Platelets Few Anisocytosis Slight Sodium Level 135mmol/L (136-145) Potassium Level 4.2mmol/L (3.5-5.1) Chloride Level 100mmol/L (98-107) Carbon Dioxide Level 26mmol/L (21-32) Anion Gap 9 (6-14) Blood Urea Nitrogen 15mg/dL (7-20) Creatinine 0.7mg/dL (0.6-1.0) Estimated GFR (Cockcroft-Gault) 95.8 Glucose Level 133mg/dL (70-99) Calcium Level 9.2mg/dL (8.5-10.1) Laboratory Tests Test 12/25/16 12:45 White Blood Count 7.1x10^3/uL (4.0-11.0) Red Blood Count 2.22x10^6/uL (3.50-5.40) Hemoglobin 8.1g/dL (12.0-15.5) Hematocrit 23.2% (36.0-47.0) Mean Corpuscular Volume 105fL (79-100) Mean Corpuscular Hemoglobin 36pg (25-35) Mean Corpuscular Hemoglobin Concent 35g/dL (31-37) Red Cell Distribution Width 19.3% (11.5-14.5) Platelet Count 186x10^3/uL (140-400) Neutrophils (%) (Auto) 53% (31-73) Lymphocytes (%) (Auto) 33% (24-48) Monocytes (%) (Auto) 13% (0-9) Eosinophils (%) (Auto) 1% (0-3) Basophils (%) (Auto) 1% (0-3) Neutrophils # (Auto) 3.7x10^3uL (1.8-7.7) Lymphocytes # (Auto) 2.3x10^3/uL (1.0-4.8) Monocytes # (Auto) 0.9x10^3/uL (0.0-1.1) Eosinophils # (Auto) 0.1x10^3/uL (0.0-0.7) Basophils # (Auto) 0.1x10^3/uL (0.0-0.2) Segmented Neutrophils % 56% (35-66) Band Neutrophils % 5% (0-9) Lymphocytes % 24% (24-48) Monocytes % 10% (0-10) Eosinophils % 4% (0-5) Basophils % 1% (0-3) Platelet Estimate Adequate (ADEQUATE) Giant Platelets Few Anisocytosis Slight Sodium Level 135mmol/L (136-145) Potassium Level 4.2mmol/L (3.5-5.1) Chloride Level 100mmol/L (98-107) Carbon Dioxide Level 26mmol/L (21-32) Anion Gap 9 (6-14) Blood Urea Nitrogen 15mg/dL (7-20) Creatinine 0.7mg/dL (0.6-1.0) Estimated GFR (Cockcroft-Gault) 95.8 Glucose Level 133mg/dL (70-99) Calcium Level 9.2mg/dL (8.5-10.1) Problem List Problems Medical Problems: (1) Small bowel obstruction Status: Acute Assessment/Plan ileus resolving advance diet Problems: RORY CAMPA APRN Dec 26, 2016 09:49
--- NOTE | 2016-12-26 10:27 | RAD ---
CT of the cervical spine without contrast, 12/25/2016: History: Neck pain Noncontrast scans were obtained with multiplanar reconstructions produced. There is a mild cervical scoliosis. No acute fracture or destructive bony lesion is seen. There is disc space narrowing and moderate marginal spurring at multiple levels in the mid and lower cervical spine. 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 There are moderate hypertrophic degenerative changes involving multiple facet joints bilaterally. There is a mild associated spondylolisthesis at C3-4 similar to that seen on the 08/25/2011 exam. Most of the posterior disc margins are not clearly defined on this exam. The combination of findings is causing mild narrowing of the central spinal canal at C3-4, C4-5 and C5-6. No high-grade central spinal stenosis is evident. Mild foraminal narrowing is present at several levels bilaterally. There is calcific plaquing at the carotid bifurcations. IMPRESSION: 1. Moderate multilevel degenerative change. 2. Mild unchanged spondylolisthesis at C3-4 due to facet joint arthropathy. 3. No acute bony abnormality is detected. PQRS Compliance Statement: One or more of the following individualized dose reduction techniques were utilized for this examination: 1. Automated exposure control 2. Adjustment of the mA and/or kV according to patient size 3. Use of iterative reconstruction technique
[2016-12-26 11:00] VITALS: BP 124/71
--- NOTE | 2016-12-29 05:56 | DS ---
DATE OF DISCHARGE: 12/26/2016 CHIEF COMPLAINT: Infection versus ileus. HOSPITAL COURSE: The patient is an 86-year-old -[place] retirement patient who was transferred secondary to abdominal pain and suspicion for ileus. CT in the Emergency Room did show some distention of large as well as small bowel. Surgery was consulted and recommended conservative medical treatment. She did essentially resolve with her abdominal pain as well as patency of her GI system and was able to move her bowels. During her hospitalization, she developed severe neck pain. A CT of the neck essentially did not reveal any gross abnormalities save for DJD. She was therefore treated symptomatically with muscle relaxant, pain medications and heat. Another finding on routine workup showed her to be moderate to severely anemic with normal B12 and folate levels. With significant macrocytosis, this was suspected to be MDS for which she can follow up on an outpatient basis with Hematology should her numbers worsen. PHYSICAL EXAMINATION: Please refer to note from same day, discharge date is 12/26/2016. DISCHARGE DIAGNOSES: Ileus, neck pain, anemia. DISCHARGE DISPOSITION: To SNF. DISCHARGE CONDITION: Improved. DISCHARGE MEDICATIONS: Please refer to MAR. DISCHARGE INSTRUCTIONS: The patient will follow up with PCP at the retirement. Greater than 30 minutes were spent in arranging discharge. ANTOINETTE PATTERSON MD DR: UR/nts JOB#: [id number] / [id number] Laxmi Martines MD MTDD
== END 2016-12-26 14:15 | DRG 389 ==
LOC: ER 13:11 → 4 NORTH 14:41
PROVIDERS: ADMIT Internal Medicine; ATTEND Internal Medicine
DX: K56.7 Ileus, unspecified (principal); C85.90 Non-Hodgkin lymphoma, unspecified, unspecified site; D64.9 Anemia, unspecified; F03.90 Unspecified dementia, unspecified severity, without behavioral disturbance, psychotic disturbance, mood disturbance, and anxiety; I50.9 Heart failure, unspecified; I11.0 Hypertensive heart disease with heart failure; K21.9 Gastro-esophageal reflux disease without esophagitis; J45.909 Unspecified asthma, uncomplicated; M10.9 Gout, unspecified; K59.00 Constipation, unspecified; E86.0 Dehydration; F41.9 Anxiety disorder, unspecified; M19.90 Unspecified osteoarthritis, unspecified site; M54.2 Cervicalgia; Z88.0 Allergy status to penicillin; Z91.041 Radiographic dye allergy status; Z82.49 Family history of ischemic heart disease and other diseases of the circulatory system; Z90.710 Acquired absence of both cervix and uterus; K56.41 Fecal impaction
CPT/HCPCS: 36415; 72125; 74020; 74022; 74176; 80048; 80053; 82607; 82746; 82947; 83690; 83735; 84443; 85007; 85027; 87641; 93005; J0360; J1650; J2270; J2405; J7030; J7042; 99285-25

== ENCOUNTER 2017-01-09 03:14 | Emergency (ER) | payer MEDICARE, OTHER ==
[~2017-01-09] VITALS: Ht 162.6 cm; Wt 77.1 kg
[~2017-01-09 03:14] MED LIST changes: +ASPI81TA2 PO; +BISA10SU2 RC; +DICL100G24 TP; +FURO20TA3 PO; +IPRA3AMP NEB; +LACT20SO PO; +METO50TA10 PO; +METO5TAB55 PO; +POTA20TA84 PO
[2017-01-09] MEDS ORDERED: SILVER NITRATE STICK TP ONE (04:00)
--- NOTE | 2017-01-09 04:03 | PHYS DOC ---
Past Medical History Past Medical History: Anemia, Arthritis, Arrhythmia, Asthma, CHF, GERD, Kidney Infection, Renal Disease, TB, Other Additional Past Medical Histor: Lymphedema, Malignant Lymphomas, Falls, Rhabdomyolsis, Gout, Dysrhythmias Past Surgical History: Hysterectomy Additional Past Surgical Histo: Unknown Alcohol Use: None Drug Use: None Adult General Chief Complaint Chief Complaint: NOSEBLEED HPI HPI Patient is a 86 year old female who presents here today secondary to epistaxis. Patient reports the bleeding continued for approximately 1 hour prior to arrival. Upon EMS arrival pressure was placed and within 5 minutes bleeding and stop. Patient denies any other symptomatology at this time. She denies any fevers shakes chills nausea vomiting diarrhea chest pain or shortness of breath. Patient has any cough cold runny nose. Patient denies being on any anticoagulants. Patient's physical exam is significant for bleeding and clot noted in her left naris. There is currently no active bleeding. Using sulfonate nitrate sticks her left naris was cauterized with no further bleeding noted on the ED. Patient was observed in the ED for approximately 1 hour without any further bleeding. Patient's clinically and hemodynamically stable for discharge to home at this time. Review of Systems Review of Systems Constitutional: Denies fever or chills [] Eyes: Denies change in visual acuity, redness, or eye pain [] All other review systems are negative except as documented in the history of present illness portion. Current Medications Current Medications Current Medications Medications (Trade) Dose Ordered Sig/Harmeet Start Time Stop Time Status Last Admin Dose Admin Silver Nitrate/ Potassium Nitrate 4 each 1X ONCE 01/09/17 04:00 01/09/17 04:01 DC 01/09/17 04:00 4 EACH Allergies Allergies Allergies Coded Allergies Type Severity Reaction Last Updated Verified Iodinated Contrast Media - Oral and Allergy Severe Anaphylaxis 02/04/16 Yes Iodine and Iodide Containing Produc Allergy Severe Anaphylaxis 02/04/16 Yes iodine Allergy Severe ANAPHYLAXIS 02/04/16 Yes Penicillins Allergy Intermediate 02/04/16 Yes I S O L A T I O N *CONTACT* Allergy Unknown 02/04/16 Yes Physical Exam Physical Exam Constitutional: Well developed, well nourished, no acute distress, non-toxic appearance. [] HENT: Normocephalic, atraumatic, bilateral external ears normal, oropharynx moist, no oral exudates, clots noted in nares. Eyes: PERRLA, EOMI, conjunctiva normal, no discharge. [] Neck: Normal range of motion, no tenderness, supple, no stridor. [] Cardiovascular:Heart rate regular rhythm, no murmur [] Lungs & Thorax: Bilateral breath sounds clear to auscultation [] Abdomen: Bowel sounds normal, soft, no tenderness, no masses, no pulsatile masses. [] Skin: Warm, dry, no erythema, no rash. [] Back: No tenderness, no CVA tenderness. [] Extremities: No tenderness, no cyanosis, no clubbing, ROM intact, no edema. [] Neurologic: Alert and oriented X 3, normal motor function, normal sensory function, no focal deficits noted. [] Psychologic: Affect normal, judgement normal, mood normal. [] Current Patient Data Vital Signs Vital Signs Date Time Temp Pulse Resp B/P Pulse Ox O2 Delivery O2 Flow Rate FiO2 01/09/17 04:26 80 14 143/67 97 Room Air 01/09/17 03:50 99.3 99.3 EKG EKG [] Radiology/Procedures Radiology/Procedures [] Course & Med Decision Making Course & Med Decision Making Pertinent Labs and Imaging studies reviewed. (See chart for details) [] Dragon Disclaimer Dragon Disclaimer This electronic medical record was generated, in whole or in part, using a voice recognition dictation system. Departure Departure Impression: Primary Impression: Epistaxis Additional Impression: Anterior epistaxis Disposition: HOME, SELF-CARE Condition: IMPROVED Referrals: RICH MELÉNDEZ MD (PCP) Patient Instructions: Nosebleed Problem Qualifiers JAMIL THORPE MD Jan 09, 2017 04:03
[2017-01-09 04:26] VITALS: BP 143/67
== END 2017-01-09 05:15 | disposition home or self-care (01) ==
LOC: ER 03:14
DX: R04.0 Epistaxis (principal); I50.9 Heart failure, unspecified; M19.90 Unspecified osteoarthritis, unspecified site; M10.9 Gout, unspecified; K21.9 Gastro-esophageal reflux disease without esophagitis; J45.909 Unspecified asthma, uncomplicated; N18.9 Chronic kidney disease, unspecified; Z88.8 Allergy status to other drugs, medicaments and biological substances; Z91.041 Radiographic dye allergy status; Z88.0 Allergy status to penicillin; Z85.72 Personal history of non-Hodgkin lymphomas
CPT/HCPCS: 30901; 99284

== ENCOUNTER 2017-01-10 13:47 | Emergency (ER) | payer MEDICARE, OTHER ==
[~2017-01-10] VITALS: Ht 161.3 cm; Wt 77.1 kg
[2017-01-10 15:25] LABS: BASO # 0.1 x10^3/uL (0.0-0.2); BASO % 1 % (0-3); EOS % 0 % (0-3); HEMATOCRIT 25.6 % (36.0-47.0); HEMOGLOBIN 8.4 g/dL (12.0-15.5); LYMPH # 1.8 x10^3/uL (1.0-4.8); LYMPH % 30 % (24-48); MEAN CORPUSCULAR HEMOGLOBIN 36 pg (25-35); MEAN CORPUSCULAR HGB CONC 33 g/dL (31-37); MEAN CORPUSCULAR VOLUME 110 fL (79-100); MONO % 16 % (0-9); NEUT % 53 % (31-73); PLATELET COUNT 178 x10^3/uL (140-400); RED BLOOD COUNT 2.33 x10^6/uL (3.50-5.40); WHITE BLOOD COUNT 6.2 x10^3/uL (4.0-11.0)
[2017-01-10 15:39] LABS: CALCIUM 9.9 mg/dL (8.5-10.1); CREATININE 1.2 mg/dL (0.6-1.0); GFR 51.4; POTASSIUM 3.9 mmol/L (3.5-5.1)
[2017-01-10 16:23] LABS: ANISOCYTOSIS MOD; HYPOCHROMIA SLIGHT; PLT ESTIMATE ADEQUATE (ADEQUATE)
--- NOTE | 2017-01-10 17:12 | RAD ---
PROCEDURE CT ABDOMEN AND PELVIS. HISTORY CHRONIC ABD PAIN AND DISCOMFORT, DISTENSION
NO IV PER ALLERGY TO IODINE TECHNIQUE AXIAL IMAGES THROUGH THE ABDOMEN AND PELVIS WERE OBTAINED. THE EXAMINATION IS LIMITED. NO IV OR GASTROINTESTINAL CONTRAST WAS ADMINISTERED. COMPARISON NOTE IS MADE OF A SIMILAR EXAMINATION DECEMBER 21, 2016 FINDINGS NO ACUTE OR SIGNIFICANT FINDING IS SEEN AT EITHER LUNG BASE. A FOCAL MASS IN THE LIVER OR SPLEEN IS NOT SEEN. THE GALLBLADDER APPEARS GROSSLY NORMAL. NO PANCREATIC ABNORMALITY IS SEEN. THE ADRENAL GLANDS AND KIDNEYS APPEAR UNREMARKABLE. A FOCAL MASS OR INFLAMMATORY PROCESS IN THE ABDOMEN IS NOT SEEN. A FOCAL MASS OR INFLAMMATORY PROCESS IN THE PELVIS IS NOT SEEN. There is generalized dilatation of large and small bowel loops. The degree of dilatation is greater than on the previous exam. There is perhaps slight narrowing in the mid sigmoid colon extending over approximately a 4-5 centimeter segment. An obstructing process in this area is not excluded. Colonoscopy, if not recently performed, should be considered. There are chronic musculoskeletal changes in the lower lumbar spine similar to the previous exam. IMPRESSION No definite acute findings seen in the abdomen or pelvis. Generalized dilatation of small and large bowel loops. The finding is nonspecific. It may reflect ileus. An obstructing process in the mid sigmoid colon is not entirely excluded. If colonoscopy has not been recently performed this should be considered Electronically signed by: Armando Nieves (Jan 10, 2017 17:10:46)
--- NOTE | 2017-01-10 17:21 | PHYS DOC ---
Past Medical History Past Medical History: Anemia, Arthritis, Arrhythmia, Asthma, CHF, GERD, Kidney Infection, Renal Disease, TB, Other Additional Past Medical Histor: Lymphedema, Malignant Lymphomas,Rhabdomyolsis, non-hodgkins Past Surgical History: Hysterectomy Additional Past Surgical Histo: Unknown Alcohol Use: None Drug Use: None Adult General Chief Complaint Chief Complaint: ABDOMINAL PAIN HPI HPI Patient is a 86 year old female with recent diagnosis of ileus who returns from nursing facility for further concern of ileus with complaint of worsening abdominal distention. Patient has no complaints, but nursing staff has noted worsening of her abdominal distention. Son is at bedside who notes normal gradual return of oral intake and loose bowel movements recently. She had a loose bowel movement in the emergency department as well. She denies abdominal pain, nausea or vomiting, dysuria. She states she is hungry and would like to return to nursing facility. Review of Systems Review of Systems Constitutional: Denies fever or chills [] Eyes: Denies change in visual acuity, redness, or eye pain [] HENT: Denies nasal congestion or sore throat [] Respiratory: Denies cough or shortness of breath [] Cardiovascular: No additional information not addressed in HPI [] GI: Denies abdominal pain, nausea, vomiting, bloody stools or diarrhea [] : Denies dysuria or hematuria [] Musculoskeletal: Denies back pain or joint pain [] Integument: Denies rash or skin lesions [] Neurologic: Denies headache, focal weakness or sensory changes [] Endocrine: Denies polyuria or polydipsia [] Allergies Allergies Allergies Coded Allergies Type Severity Reaction Last Updated Verified Iodinated Contrast Media - Oral and Allergy Severe Anaphylaxis 02/04/16 Yes Iodine and Iodide Containing Produc Allergy Severe Anaphylaxis 02/04/16 Yes iodine Allergy Severe ANAPHYLAXIS 02/04/16 Yes Penicillins Allergy Intermediate 02/04/16 Yes I S O L A T I O N *CONTACT* Allergy Unknown 02/04/16 Yes Physical Exam Physical Exam Constitutional: Well developed, well nourished, no acute distress, non-toxic appearance. [] HENT: Normocephalic, atraumatic, bilateral external ears normal, oropharynx moist, nose normal. [] Eyes: PERRLA, EOMI. [] Neck: Normal range of motion, supple. [] Cardiovascular:Heart rate regular rhythm [] Lungs & Thorax: Bilateral breath sounds clear to auscultation [] Abdomen: Bowel sounds normal, soft, no tenderness, soft dull distention. [] Skin: Warm, dry, no erythema, no rash. [] Back: No tenderness, no CVA tenderness. [] Extremities: ROM intact, no edema. [] Neurologic: Alert and oriented to self and situation, normal motor function, normal sensory function, no focal deficits noted. [] Psychologic: Affect normal, judgement normal, mood normal. [] Current Patient Data Vital Signs Vital Signs Date Time Temp Pulse Resp B/P Pulse Ox O2 Delivery O2 Flow Rate FiO2 01/10/17 17:58 76 16 109/62 94 Room Air 01/10/17 13:47 98.5 98.5 Lab Values Laboratory Tests Test 01/10/17 14:30 White Blood Count 6.2x10^3/uL (4.0-11.0) Red Blood Count 2.33x10^6/uL (3.50-5.40) L Hemoglobin 8.4g/dL (12.0-15.5) L Hematocrit 25.6% (36.0-47.0) L Mean Corpuscular Volume 110fL (79-100) H Mean Corpuscular Hemoglobin 36pg (25-35) H Mean Corpuscular Hemoglobin Concent 33g/dL (31-37) Red Cell Distribution Width 21.0% (11.5-14.5) H Platelet Count 178x10^3/uL (140-400) Neutrophils (%) (Auto) 53% (31-73) Lymphocytes (%) (Auto) 30% (24-48) Monocytes (%) (Auto) 16% (0-9) H Eosinophils (%) (Auto) 0% (0-3) Basophils (%) (Auto) 1% (0-3) Neutrophils # (Auto) 3.3x10^3uL (1.8-7.7) Lymphocytes # (Auto) 1.8x10^3/uL (1.0-4.8) Monocytes # (Auto) 1.0x10^3/uL (0.0-1.1) Eosinophils # (Auto) 0.0x10^3/uL (0.0-0.7) Basophils # (Auto) 0.1x10^3/uL (0.0-0.2) Platelet Estimate Adequate (ADEQUATE) Giant Platelets Few Hypochromasia Slight Basophilic Stippling Present Anisocytosis Mod Macrocytosis Slight Sodium Level 134mmol/L (136-145) L Potassium Level 3.9mmol/L (3.5-5.1) Chloride Level 97mmol/L (98-107) L Carbon Dioxide Level 24mmol/L (21-32) Anion Gap 13 (6-14) Blood Urea Nitrogen 31mg/dL (7-20) H Creatinine 1.2mg/dL (0.6-1.0) H Estimated GFR (Cockcroft-Gault) 51.4 Glucose Level 135mg/dL (70-99) H Calcium Level 9.9mg/dL (8.5-10.1) Laboratory Tests 01/10/17 14:30 Laboratory Tests 01/10/17 14:30 Radiology/Procedures Radiology/Procedures CT abdomen and pelvis without contrast IMPRESSION No definite acute findings seen in the abdomen or pelvis. Generalized dilatation of small and large bowel loops. The finding is nonspecific. It may reflect ileus. An obstructing process in the mid sigmoid colon is not entirely excluded. If colonoscopy has not been recently performed this should be considered Electronically signed by: Armando Nieves (Jan 10, 2017 17:10:46) Course & Med Decision Making Course & Med Decision Making Pertinent Labs and Imaging studies reviewed. (See chart for details) CT appears unchanged from prior examination. She symptomatically has a resolving ileus as she is tolerating oral intake and having bowel movements. Recommend return to nursing facility for continued supportive care. Return precautions given. She and family understand and agree with plan. Dragon Disclaimer Dragon Disclaimer This electronic medical record was generated, in whole or in part, using a voice recognition dictation system. Departure Departure Impression: Primary Impression: Abdominal distention Disposition: HOME, SELF-CARE Condition: STABLE Referrals: RICH MELÉNDEZ MD (PCP) Patient Instructions: Ileus Additional Instructions: You have a resolving ileus with remaining abdominal distention. Continue to eat and drink to stay hydrated. Follow-up with GI clinic and your primary care doctor. Please call [phone] for GI clinic appointment. Return for any concerns. Pallavi MOMIN MD Jan 10, 2017 17:21
[2017-01-10 17:58] VITALS: BP 109/62
== END 2017-01-10 18:44 | disposition home or self-care (01) ==
LOC: ER 13:47
DX: R14.0 Abdominal distension (gaseous) (principal); I50.9 Heart failure, unspecified; K21.9 Gastro-esophageal reflux disease without esophagitis; M19.90 Unspecified osteoarthritis, unspecified site; J45.909 Unspecified asthma, uncomplicated; Z85.72 Personal history of non-Hodgkin lymphomas; Z87.448 Personal history of other diseases of urinary system; Z90.710 Acquired absence of both cervix and uterus; Z88.0 Allergy status to penicillin; Z91.041 Radiographic dye allergy status
CPT/HCPCS: 36415; 74176; 80048; 85007; 85027; 99285-25

== ENCOUNTER 2017-08-08 12:23 | Emergency (ER) | payer MEDICARE, OTHER ==
[2017-08-08 12:23] VITALS: BP 144/77
[~2017-08-08 12:23] MED LIST changes: +ASPI-630 PO; -ASPI81TA2 PO; -GUAI600T38 PO; +GUAI600T47 PO; -METO50TA10 PO; +METO50TA29 PO; +NITR0.4T22 SL; -NITR0.4T6 SL; -OMEP20TA PO; +OMEP20TA8 PO; +POLY17PO29 PO; -POLY17PO5 PO; -POTA10CA PO; +POTASSIUM CHLO10 MEQ PO; +SENN1TAB15 PO; -SENN1TAB5 PO
--- NOTE | 2017-08-08 12:26 | PHYS DOC ---
Past Medical History Past Medical History: Anemia, Arthritis, Arrhythmia, Asthma, CHF, GERD, Kidney Infection, Renal Disease, TB, Other Additional Past Medical Histor: Lymphedema, Malignant Lymphomas,Rhabdomyolsis, non-hodgkins Past Surgical History: Hysterectomy Additional Past Surgical Histo: Unknown Alcohol Use: None Drug Use: None Adult General Chief Complaint Chief Complaint: nosebleed HPI HPI Patient is a 87 year old -[place] female who presents with nosebleed out of her right nose. According EMS started about 20 minutes ago and she's been seen 2 other times for this. Patient denies any lightheadedness chest pain shortness of breath or dizziness. At this time it appears her bleeding has stopped. She denies being on any Coumadin or anticoagulants. She does take aspirin daily. Review of Systems Review of Systems Constitutional: Denies fever or chills [] Eyes: Denies change in visual acuity, redness, or eye pain [] HENT: Denies nasal congestion or sore throat [] Respiratory: Denies cough or shortness of breath [] Cardiovascular: No additional information not addressed in HPI [] GI: Denies abdominal pain, nausea, vomiting, bloody stools or diarrhea [] : Denies dysuria or hematuria [] Musculoskeletal: Denies back pain or joint pain [] Integument: Denies rash or skin lesions [] Neurologic: Denies headache, focal weakness or sensory changes [] Endocrine: Denies polyuria or polydipsia [] Current Medications Current Medications Current Medications Medications (Trade) Dose Ordered Sig/Harmeet Start Time Stop Time Status Last Admin Dose Admin Oxymetazoline HCl (Afrin) 2 spray 1X ONCE 08/08/17 12:30 08/08/17 12:31 DC 08/08/17 12:39 2 SPRAY Allergies Allergies Allergies Coded Allergies Type Severity Reaction Last Updated Verified Iodinated Contrast- Oral and IV Dye Allergy Severe Anaphylaxis 02/04/16 Yes Iodine and Iodide Containing Produc Allergy Severe Anaphylaxis 02/04/16 Yes iodine Allergy Severe ANAPHYLAXIS 02/04/16 Yes Penicillins Allergy Intermediate 02/04/16 Yes I S O L A T I O N *CONTACT* Allergy Unknown 02/04/16 Yes Physical Exam Physical Exam Constitutional: Well developed, well nourished, no acute distress, non-toxic appearance. [] HENT: Normocephalic, atraumatic, bilateral external ears normal, oropharynx moist, no oral exudates, nose normal. Dry blood in the right naris, and no active bleeding noted, no blood in the posterior pharynx Eyes: PERRLA, EOMI, conjunctiva normal, no discharge. [] Neck: Normal range of motion, no tenderness, supple, no stridor. [] Cardiovascular:Heart rate regular rhythm, no murmur [] Lungs & Thorax: Bilateral breath sounds clear to auscultation [] Abdomen: Bowel sounds normal, soft, no tenderness, no masses, no pulsatile masses. [] Skin: Warm, dry, no erythema, no rash. [] Back: No tenderness, no CVA tenderness. [] Extremities: No tenderness, no cyanosis, no clubbing, ROM intact, no edema. [] Neurologic: Alert and oriented X 3, normal motor function, normal sensory function, no focal deficits noted. [] Psychologic: Affect normal, judgement normal, mood normal. [] Current Patient Data Vital Signs Vital Signs Date Time Temp Pulse Resp B/P (MAP) Pulse Ox O2 Delivery O2 Flow Rate FiO2 08/08/17 12:23 98.8 75 18 144/77 (99) 97 Room Air 98.8 EKG EKG [] Radiology/Procedures Radiology/Procedures [] Impressions: Epistasis Course & Med Decision Making Course & Med Decision Making Pertinent Labs and Imaging studies reviewed. (See chart for details) Pressure was applied and the bleeding is stopped. Patient was watched for approximately 2 hours without any bleeding. Her posterior pharynx is clear and is no signs of active bleeding. Patient's being discharged home with return precautions and follow-up with ENT in addition to use nasal saline sprays. Her son is at bedside understands the instructions and she's being discharged in stable condition at this time. Dragon Disclaimer Dragon Disclaimer This electronic medical record was generated, in whole or in part, using a voice recognition dictation system. Departure Departure Impression: Primary Impression: Anterior epistaxis Disposition: 01 HOME, SELF-CARE Condition: STABLE Referrals: RICH MELÉNDEZ MD (PCP) Patient Instructions: Nosebleed, [id number] Additional Instructions: You were seen today for your nosebleed. It has stopped bleeding. You will need to use saline nasal spray to help keep your nose from drying out. You can purchase this [id number] or your residential can provided. You'll also need to follow-up with an ears nose and throat physician. Please have your residential her primary care physician refer you to an ears nose and throat physician. If your nose to bleeding again you develop lightheadedness dizziness , chest pain, troubles breathing or other concerns please return back to emergency department. NEELAM MCCABE MD Aug 08, 2017 12:26
[2017-08-08] MEDS: OXYMETAZOLINE 0.05% NASAL SPRAY 30ML BOTTLE. NS ONE (12:39)
== END 2017-08-08 14:24 | disposition home or self-care (01) ==
LOC: ER 12:23
DX: R04.0 Epistaxis (principal); J45.909 Unspecified asthma, uncomplicated; K21.9 Gastro-esophageal reflux disease without esophagitis; I13.0 Hypertensive heart and chronic kidney disease with heart failure and stage 1 through stage 4 chronic kidney disease, or unspecified chronic kidney disease; N18.9 Chronic kidney disease, unspecified; I50.9 Heart failure, unspecified; M19.90 Unspecified osteoarthritis, unspecified site; Z90.710 Acquired absence of both cervix and uterus; Z88.0 Allergy status to penicillin; Z91.041 Radiographic dye allergy status
CPT/HCPCS: 99284

== ENCOUNTER 2019-01-14 11:34 | Emergency (ER) | payer MEDICARE, OTHER ==
[~2019-01-14] VITALS: Ht 162.6 cm; Wt 68.0 kg
[~2019-01-14 11:34] MED LIST changes: +CARV3.1210 PO; -CARV3.122 PO; -FERR-26 PO; +FERR325T14 PO; -GABA-586 PO; +GABA300C18 PO; -IPRA3AMP IH; -IPRA3AMP NEB; +IPRA3AMP29 IH; +IPRA3AMP29 NEB; +OMEP20CA10 PO; -OMEP20CA9 PO; +POTA10TA12 PO; -POTASSIUM CHLO10 MEQ PO
--- NOTE | 2019-01-14 11:49 | PHYS DOC ---
Past Medical History Past Medical History: Anemia, Arthritis, Arrhythmia, Asthma, CHF, GERD, Kidney Infection, Renal Disease, TB, Other Additional Past Medical Histor: Lymphedema, Malignant Lymphomas,Rhabdomyolsis, non-hodgkins Past Surgical History: Hysterectomy Additional Past Surgical Histo: Unknown Alcohol Use: None Drug Use: None Adult General Chief Complaint Chief Complaint: NOSEBLEED HPI HPI Patient is a 88 year old female who presents with a nosebleed. This started approximately an hour prior to arrival. She does get frequent nosebleeds, she is on home oxygen therapy via nasal cannula. Bleeding was controlled with pressure. She resides at an assisted care facility and they sent her in for evaluation since this one lasted longer than usual. She denies any trauma. Denies being on blood thinners. Review of the nursing medical record does not show any blood thinners.[] Review of Systems Review of Systems Constitutional: Denies fever or chills [] Eyes: Denies change in visual acuity, redness, or eye pain [] HENT: See history of present illness, denies sore throat [] Respiratory: Denies cough or shortness of breath [] Cardiovascular: No chest pain or palpitations[] GI: Denies abdominal pain, nausea, vomiting, bloody stools or diarrhea [] : Denies dysuria or hematuria [] Musculoskeletal: Denies back pain or joint pain [] Integument: Denies rash or skin lesions [] Neurologic: Denies headache, focal weakness or sensory changes [] Endocrine: Denies polyuria or polydipsia [] All other systems were reviewed and found to be within normal limits, except as documented in this note. Current Medications Current Medications Current Medications Medications (Trade) Dose Ordered Sig/Harmeet Start Time Stop Time Status Last Admin Dose Admin Oxymetazoline HCl (Afrin) 2 spray 1X ONCE 01/14/19 12:30 01/14/19 12:31 01/14/19 12:01 2 SPRAY Allergies Allergies Allergies Coded Allergies Type Severity Reaction Last Updated Verified Iodinated Contrast- Oral and IV Dye Allergy Severe Anaphylaxis 02/04/16 Yes Iodine and Iodide Containing Produc Allergy Severe Anaphylaxis 02/04/16 Yes iodine Allergy Severe ANAPHYLAXIS 02/04/16 Yes Penicillins Allergy Intermediate 02/04/16 Yes I S O L A T I O N *CONTACT* Allergy Unknown 02/04/16 Yes Physical Exam Physical Exam Constitutional: Well developed, well nourished, no acute distress, non-toxic appearance. [] HENT: Normocephalic, atraumatic, bilateral external ears normal, oropharynx moist, no oral exudates, nose has a small amount of bleeding from the right nares, no bleeding site identified. [] Eyes: PERRLA, EOMI, conjunctiva normal, no discharge. [] Neck: Normal range of motion, no tenderness, supple, no stridor. [] Cardiovascular:Heart rate regular rhythm, no murmur [] Lungs & Thorax: Bilateral breath sounds clear to auscultation [] Abdomen: Not examined. [] Skin: Warm, dry, no erythema, no rash. [] Back: No tenderness, no CVA tenderness. [] Extremities: No tenderness, no cyanosis, no clubbing, ROM intact, no edema. [] Neurologic: Alert and oriented X 3, normal motor function, normal sensory function, no focal deficits noted. [] Psychologic: Affect normal, judgement normal, mood normal. [] Current Patient Data Vital Signs Vital Signs Date Time Temp Pulse Resp B/P (MAP) Pulse Ox O2 Delivery O2 Flow Rate FiO2 01/14/19 11:34 97.8 82 16 167/81 (109) 97 Room Air 97.8 EKG EKG [] Radiology/Procedures Radiology/Procedures [] Course & Med Decision Making Course & Med Decision Making Pertinent Labs and Imaging studies reviewed. (See chart for details) ED course: Patient arrived, was placed in bed, and tolerated exam well. She started having some bleeding after removing the packing so a nasal clamp was placed. Subsequently Afrin was instilled into bilateral nares. On reevaluation 10 minutes later the bleeding had stopped. Patient was discharged in improved condition.[] Dragon Disclaimer Dragon Disclaimer This electronic medical record was generated, in whole or in part, using a voice recognition dictation system. Departure Departure Impression: Primary Impression: Epistaxis Disposition: 01 HOME, SELF-CARE Condition: IMPROVED Referrals: RICH MELÉNDEZ MD (PCP) Follow-up in 2 days Patient Instructions: Nosebleed Additional Instructions: Follow-up with your regular doctor in 2 days. You may slather Vaseline on the inside the nose to act as a moisture barrier to help with healing. Return to the ER if worsening bleeding or any other concerns. Use Afrin/oxymetazoline only during a nosebleed. Use as follows: 1. Blow all the snot and clot out gently 2. [place] 4 sprays of Afrin into both nares 3. Hold pressure for 10 minutes. 4. if there is continued bleeding after 10 minutes repeat steps 1 through 3 above 5. If there is continued bleeding after 2 attempts, hold pressure and return to the emergency department TRAMAINE FENTON DO Jan 14, 2019 11:49
[2019-01-14] MEDS ORDERED: OXYMETAZOLINE 0.05% NASAL SPRAY 30ML BOTTLE. NS ONE (12:30)
[2019-01-14 12:35] VITALS: BP 160/63
== END 2019-01-14 12:50 | disposition home or self-care (01) ==
LOC: ER 11:34
DX: R04.0 Epistaxis (principal); J45.909 Unspecified asthma, uncomplicated; K21.9 Gastro-esophageal reflux disease without esophagitis; Z86.79 Personal history of other diseases of the circulatory system; Z88.0 Allergy status to penicillin; Z91.041 Radiographic dye allergy status
CPT/HCPCS: 99283

== ENCOUNTER 2019-03-13 21:58 | Emergency (ER) | payer MEDICARE, OTHER ==
[~2019-03-13] VITALS: Ht 154.9 cm; Wt 68.0 kg
[2019-03-13 22:00] VITALS: BP 192/89
[2019-03-13] MEDS ORDERED: OXYMETAZOLINE 0.05% NASAL SPRAY 30ML BOTTLE. NS ONE ×2 (22:06→22:15)
[2019-03-13] MEDS ORDERED: SODI104S NS (22:35)
--- NOTE | 2019-03-13 22:35 | PHYS DOC ---
Past Medical History Past Medical History: Anemia, Arthritis, Arrhythmia, Asthma, CHF, Diabetes-Type II, GERD, Kidney Infection, Renal Disease, TB, Other Additional Past Medical Histor: Lymphedema, Malignant Lymphomas,Rhabdomyolsis, non-hodgkins, CARDIOMEG, Past Surgical History: Hysterectomy Additional Information: Nonsmoker Alcohol Use: None Drug Use: None Adult General Chief Complaint Chief Complaint: NOSEBLEED HPI HPI 88-year-old female presents with report of epistaxis times one day. Patient is currently on hospice for non-Hodgkin's lymphoma. Denies any blood thinners. Patient does wear oxygen [id number]. Patient lives at skilled nursing under hospice care who reportedly rate able to get bleeding controlled but then reoccurred. Patient does have a history of anemia. Patient and family reluctant to have any blood drawn at this time as they would not elect to have a transfusion. Denies known trauma. Denies fever or chills. Patient reports bleeding from right near and has had some go down the back of her throat. Review of Systems Review of Systems Constitutional: Denies fever or chills [] Eyes: Denies change in visual acuity, redness, or eye pain [] HENT: Reports of epistaxis, denies earache Respiratory: Denies cough or shortness of breath [] Cardiovascular: Denies chest pain or palpitations GI: Denies abdominal pain, or vomiting Musculoskeletal: Denies back pain or joint pain [] Integument: Denies rash or skin lesions [] Neurologic: Denies headache, focal weakness or sensory changes [] Complete systems were reviewed and found to be within normal limits, except as documented in this note. Current Medications Current Medications Current Medications Medications (Trade) Dose Ordered Sig/Harmeet Start Time Stop Time Status Last Admin Dose Admin Oxymetazoline HCl (Afrin) 2 spray 1X ONCE 03/13/19 22:15 03/13/19 22:26 DC 03/13/19 22:24 2 SPRAY Sodium Chloride 1,000 ml @ 1,000 mls/hr 1X ONCE 03/13/19 23:45 03/14/19 00:44 Allergies Allergies Allergies Coded Allergies Type Severity Reaction Last Updated Verified Iodinated Contrast- Oral and IV Dye Allergy Severe Anaphylaxis 02/04/16 Yes Iodine and Iodide Containing Produc Allergy Severe Anaphylaxis 02/04/16 Yes iodine Allergy Severe ANAPHYLAXIS 02/04/16 Yes Penicillins Allergy Intermediate 02/04/16 Yes I S O L A T I O N *CONTACT* Allergy Unknown 02/04/16 Yes Physical Exam Physical Exam Constitutional: Well developed, well nourished, no acute distress, non-toxic appearance. [] HENT: Normocephalic, atraumatic, oropharynx moist, pharynx without active bleeding, right nare noted with some active bleeding, appears anterior Eyes: EOMI, conjunctiva normal, no discharge. [] Neck: Normal range of motion, no tenderness, supple Cardiovascular:Heart rate regular rhythm, no murmur [] Lungs & Thorax: Bilateral breath sounds clear to auscultation [] Abdomen: Soft, no tenderness Skin: Warm, dry, no erythema Neurologic: Alert and oriented X 3,no focal deficits noted. [] Psychologic: Affect normal, judgement normal, mood normal. [] Current Patient Data Vital Signs Vital Signs Date Time Temp Pulse Resp B/P (MAP) Pulse Ox O2 Delivery O2 Flow Rate FiO2 03/13/19 22:00 98.0 95 22 192/89 (123) 95 Room Air 98.0 EKG EKG [] Radiology/Procedures Radiology/Procedures [] Course & Med Decision Making Course & Med Decision Making Hospice patient presents with report of bleeding from right [place] which is been ongoing today. Patient reluctant to have blood drawn at this time given that she would not elect to receive any blood transfusions. Patient noted to have some blood clots she was coughing up. Active bleeding from right [place] noted. Patient sat up and was able to cough out blood clots. Blood clots recent move from [place] and Afrin sprays provided with nasal clamp for 15 minute episodes x 3. Patient with interval improvement of symptoms. Patient stable for discharge with outpatient follow-up with PCP/ENT. Discussed findings and plan with patient and family, who acknowledge understanding and agreement. 2315- patient being transferred out to her car and was started up to get into be at home at which time patient subsequently had a syncopal episode. Concern for orthostatic hypotension. Patient returned to the room as she was not following commands but rather groaning. Patient at that time noted to be down to 70% on room air. Supplemental O2 provided with interval improvement. Discussion with the DPOA regarding IV access and blood draw with some IV fluid hydration. The DPOA agreeable. Patient subsequently fully awake upon IV stick. 2345- Patient difficult IV stick. Patient fully awake and alert. Patient request no more attempts and does not want IV fluid. DPOA in agreement. Decision to transfer back to ECF/hospice by EMS. O2 therefore may be continued. Labs and IV fluid discontinued. Epistaxis continued to be improved. Patient advised to increase fluid hydration. Patient stable for discharge with outpatient follow-up with PCP. Discussed findings and plan with patient and family, who acknowledge understanding and agreement. Dragon Disclaimer Dragon Disclaimer This electronic medical record was generated, in whole or in part, using a voice recognition dictation system. Departure Departure Impression: Primary Impression: Epistaxis Additional Impressions: Syncope Orthostatic hypotension Disposition: HOME, SELF-CARE (back to hospice) Condition: IMPROVED Referrals: RICH MELÉNDEZ MD (PCP) Patient Instructions: Nosebleed, [id number], Orthostatic Hypotension, Syncope, [id number] Additional Instructions: Use humidifier with any supplemental O2. Scripts Sodium Chloride (OCEAN) 104 Ml [place] 2 SPRAYS NS QID, #1 BOTTLE Prov: TEENA VALENTIN DO 03/13/19 Problem Qualifiers Additional Impressions: Syncope Syncope type: unspecified Qualified Codes: R55 - Syncope and collapse TEENA VALENTIN DO March 13, 2019 22:35
[2019-03-13] MEDS ORDERED: IV NORMAL SALINE 1000ML BAG 1,000 ML IV ONE (23:45)
== END 2019-03-14 00:45 | disposition home or self-care (01) ==
LOC: ER 21:58
DX: R04.0 Epistaxis (principal); I95.1 Orthostatic hypotension; J45.909 Unspecified asthma, uncomplicated; K21.9 Gastro-esophageal reflux disease without esophagitis; E11.9 Type 2 diabetes mellitus without complications; Z88.0 Allergy status to penicillin; Z91.041 Radiographic dye allergy status
CPT/HCPCS: 85025; 99284